=== PATIENT | female | born 1955 | race Caucasian/White ===

== ENCOUNTER 2017-10-15 16:13 | Emergency (ER) | payer OTHER ==
[2017-10-15 17:12] LABS: #Basophils 0.1 thou/uL (0.0-0.2); #Eosinphils 0.2 thou/uL (0.0-0.7); #Lymphocytes 2.8 thou/uL (1.20-3.40); #Monocytes 0.9 thou/uL (0.11-0.59); #Neutrophils 8.9 thou/uL (1.40-6.50); %Basophils 0.7 % (0.0-1.0); %Eosinophils 1.3 % (0.0-10.0); %Lymphocytes 21.8 % (21.0-51.0); %Monocytes 6.8 % (0.0-10.0); Hematocrit 34.7 % (36.0-47.0); Mean Platelet Volume 7.2 fL (7.4-10.4); Red Blood Cell (RBC) Count 4.01 mill/uL (4.20-5.40); White Blood Cell (WBC) Count 12.8 thou/uL (4.8-10.8)
[2017-10-15] MEDS ORDERED: Morphine 4 MG/ML Carpuject ONE (17:18)
[2017-10-15 17:19] LABS: PTT 28.6 SEC (22.9-36.1); Prothrombin Time 12.5 SEC (12.0-14.7)
--- NOTE | 2017-10-15 17:27 | ULT ---
RIGHT LOWER EXTREMITY VENOUS DUPLEX STUDY: 10/15/17 Deep veins of the right lower extremity evaluated with ultrasound and doppler. Color doppler with spe ctral analysis and compression study is performed on the common femoral, profunda femoral, superficia l femoral, popliteal, posterior tibial and greater saphenous veins. HISTORY: Pain and edema right lower extremity. Deep veins of the right lower extremity show normal compression and blood flow. No evidence of DVT. IMPRESSION: No evidence of right lower extremity DVT. POS: STEVE
[2017-10-15 17:28] LABS: ALT (SGPT) 19 U/L (8-55); AST (SGOT) 20 U/L (5-34); Alkaline Phosphatase 129 U/L (40-150); Anion Gap 15 mmol/L (10-20); BUN (Urea Nitrogen) 36 mg/dL (9.8-20.1); Bilirubin, Total 0.2 mg/dL (0.2-1.2); CK (CPK) 29 U/L (29-168); Calc. Creatinine Clearance 0 mL/min (70-130); Calcium 10.4 mg/dL (7.8-10.44); Carbon Dioxide 29 mmol/L (23-31); Chloride 102 mmol/L (98-107); Estimated GFR-MDRD 74; Globulin 3.5 g/dL (2.4-3.5); Protein, Total 7.5 g/dL (6.0-8.3)
[2017-10-15] MEDS ORDERED: Potassium Chloride 20 MEQ TAB ONE (17:32)
[2017-10-15] MEDS ORDERED: Ketorolac Tromethamine 30 MG/ML VIAL ONE (17:32)
== END 2017-10-15 18:03 | disposition home or self-care (01) ==
LOC: SCSER 16:13
DX: M79.661 Pain in right lower leg (principal); Z85.3 Personal history of malignant neoplasm of breast
CPT/HCPCS: 36415; 80053; 82550; 85025; 85610; 85730; 96372; J1885; J2270

== ENCOUNTER 2019-05-13 08:45 | Inpatient (IN) | payer OTHER ==
[2019-05-13 09:54] VITALS: BMI 35.0
[2019-05-25] MEDS ORDERED: Vancomycin HCl 1.5 GM in Sodium Chloride 0.9% 250 ML 300 ML IVPB SCH (06:00)
[2019-05-25] MEDS ORDERED: Sodium Chloride 0.9% 100 ML ONE (06:22)
[2019-05-25] MEDS ORDERED: Tranexamic Acid 1,000 MG/10 ML VIAL ONE (06:22)
[2019-05-25] MEDS ORDERED: Lidocaine 1% (PF) 30 ML VIAL ONE (06:33)
[2019-05-25] MEDS ORDERED: Midazolam HCl 2 mg/2 ml Vial ONE ×3 (06:33→09:23)
[2019-05-25] MEDS ORDERED: Fentanyl 100 MCG/2 ML VIAL ONE ×3 (06:33→09:40)
[2019-05-25] MEDS ORDERED: HYDROcodone/Acetaminophen 10/325 mg Tablet PO PRN ×2 (07:05)
[2019-05-25] MEDS ORDERED: diphenhydrAMINE 25 MG CAP PO PRN (07:05)
[2019-05-25] MEDS ORDERED: Zolpidem Tartrate 5 MG TAB PO PRN (07:05)
[2019-05-25] MEDS ORDERED: Ondansetron PF 4 MG/2 ML Vial IVP PRN (07:05)
[2019-05-25] MEDS ORDERED: traMADol HCl 50 MG TAB PO PRN ×2 (07:08→07:47)
[2019-05-25] MEDS ORDERED: Promethazine HCl 25 MG/ML VIAL IM PRN (07:40)
[2019-05-25] MEDS ORDERED: Fentanyl 100 MCG/2 ML VIAL IV PRN (07:42)
[2019-05-25] MEDS ORDERED: Ondansetron HCl/PF 4 MG/2 ML Vial IVP PRN (08:14)
[2019-05-25] MEDS ORDERED: CEVIMELINE HCL 30 MG PO SCH (09:00)
[2019-05-25] MEDS ORDERED: Baclofen 10 MG TAB PO SCH ×2 (09:00→15:00)
[2019-05-25] MEDS ORDERED: fentaNYL Citrate/PF 2,000 MCG in Sodium Chloride 0.9% 60 ML IV PRN (09:36)
--- NOTE | 2019-05-25 10:08 | RAD ---
RADIOGRAPH LEFT KNEE 2 VIEWS: 05/25/2019 HISTORY: 64-year-old female status post knee surgery for chronic pain and DJD COMPARISON: None FINDINGS: Resurfacing changes of articular surfaces of distal femur, patella, and tibial plateau. Metallic pros theses cover the resurfaced articular surfaces of distal femur and tibial plateau. Subcutaneous emphysema in the anterior soft tissues of the thigh and knee indicate recent status of surgery. IMPRESSION: Very recently status post total left knee replacement arthroplasty.
[2019-05-25] MEDS ORDERED: Ropivacaine 0.2% HCl/PF (40 MG/20 ML VIAL) ONE (10:11)
[2019-05-25] MEDS ORDERED: Ropivacaine 0.5% HCl/PF (150 MG/30 ML VIAL) ONE (10:11)
[2019-05-25] MEDS ORDERED: Midazolam HCl 2 mg/2 ml Vial IVP SCH (10:15)
[2019-05-25] MEDS ORDERED: Ondansetron PF 4 MG/2 ML Vial ONE (10:34)
[2019-05-25] MEDS ORDERED: ePHEDrine 50 MG/ML VIAL ONE (10:34)
[2019-05-25] MEDS ORDERED: Lidocaine 1% PF 5 ML VIAL ONE (10:34)
[2019-05-25] MEDS ORDERED: Ketorolac Tromethamine 30 MG/ML VIAL ONE (10:34)
[2019-05-25] MEDS ORDERED: PROPOFOL 200 MG/20 ML VIAL ONE (10:34)
--- NOTE | 2019-05-25 11:01 | OP ---
DATE OF PROCEDURE: 05/25/2019 PREOPERATIVE DIAGNOSIS: End-stage tricompartmental osteoarthritis, left knee. POSTOPERATIVE DIAGNOSIS: End-stage tricompartmental osteoarthritis, left knee. OPERATIVE PROCEDURES: Cemented cruciate sparing computer-assisted navigated left total knee arthroplasty. SURGEON: Antonio Greenwood MD MANAGER ENVIRONMENTAL SERVICES: Memo Case PA-C ANESTHESIA: General via LMA augmented with indwelling adductor canal block with a single shot sciatic block. COMPONENTS USED: [employer] triathlon size 3 cemented cruciate sparing femoral component with a size 3 primary cemented tibial base plate, 9 mm polyethylene fixed bearing insert and A29 patella button. TOURNIQUET TIME: 64 minutes at 300 mmHg. FINDINGS: End-stage severe degenerative tricompartmental disease, [id number] arthrosis, periarticular osteophyte formation, large serous effusion, and hypertrophic synovium changes consistent with degenerative genu varum. DRAINS: None. SPECIMENS: None. COMPLICATIONS: None. COUNTS: Correct. INDICATION FOR SURGERY: Missy is a 64-year-old white female, who has had progressive left knee pain and problems with standing or walking for the last 5 to 7 years. She has failed conservative management, elected to proceed with total knee arthroplasty as definitive treatment of her pain. PROCEDURE IN DETAIL: After informed consent was obtained in the preoperative holding area, the patient was taken to the operative suite where general anesthesia was induced. Once adequate level of general anesthesia was obtained, the patient was positioned and a well-padded tourniquet was placed around the left proximal thigh. The left lower extremity was then prepped and draped in the usual sterile fashion. Prior to exsanguination, a time-out was called and all members of the surgical team agreed upon site, surgeon, and patient. The extremity was then exsanguinated and the tourniquet was raised. A midline longitudinal incision was then made directly over the patella extending 2 fingerbreadths above the superior pole of the patella and 2 fingerbreadths inferior to the inferior patellar pole of the patella. Deeper subcutaneous layers were dissected sharply and local bleeding was controlled with Bovie electrocautery. A quad tendon longitudinal split was then made sharply and a median parapatellar arthrotomy was carried out both sharp and with Bovie electrocautery, carried down to 1 fingerbreadth medial to the tibial tubercle. The knee was then placed into flexion and the patella was everted nicely, and a copious fat pad ectomy was performed allowing for greater exposure of the tibia. The computer-assisted distal femoral fiducial was then placed and pinned firmly, and the distal femoral cutting guide was pinned firmly into place. The oscillating saw was then used to remove the appropriate amount of bone. The 4-in-1 cutting block was then placed on the distal femur and the oscillating saw was used to remove the appropriate amount of bone off the anterior, posterior, and chamfer cuts. After completion of bone cuts, the anterior cruciate ligament was resected sharply and the posterior cruciate ligament retractor was placed and the tibia was subluxed for better exposure. Partial meniscectomies were carried out, and the tibial computer-assisted fiducial was pinned, and the cutting guide was placed. Oscillating saw was then used to remove the bone, with Hohmann retractors used to take care and protect the collateral ligaments. After the tibial resection was performed, a laminar product coordinator was placed in between the freshened bone cuts. The knee placed at 90 degrees and further bilateral meniscectomies were carried out, and the curved osteotome and curettage were used to remove any excess bone spurs in the posterior compartment. The trial femoral component, tibial baseplate were placed with the appropriate polyethylene trial insert with an appropriate polyethylene spacer and patellar button. The knee was taken through full range of motion with flexion and extension from 0 to 90 degrees and patellar broach squarely in the trochlea without any squinting or subluxation noted. The knee was also stable to varus and valgus stressing at 0, 15, 45, and 90 degrees of flexion. The drawer was negative. All trial components were then removed and the keel punch was used to provide the appropriate defect in the tibia with a mallet. The freshened bone cuts were copiously irrigated with pulsatile lavage of about 1.5 L to remove all excess debris. The freshened bone cuts were then dried with suction and lap sponge. The knee was placed in flexion and retractors were placed to provide access to all bone cuts. Tobramycin-impregnated methyl methacrylate cement was then placed on the freshened bone cuts and implants which were malleted firmly into place. Curettage and [place] elevators were used to remove any excess bone cement. The knee was placed into full extension and the patellar button was placed under compression, and the cement was allowed to cure. Once completed, the components were again taken through full range of motion and copious irrigation of the knee was carried out with another liter of normal saline. All components were inspected fully with full range of motion and varus and valgus stressing. There was no laxity noted and full extension was observed clinically. Primary closure was accomplished with #2 interrupted Vicryl stitch of the arthrotomy defect. This was oversewn with a #2 running Quill barbed stitch. The subcutaneous layer was then closed with a running 0 barbed Monocryl stitch and skin closure accomplished with a running subcuticular 3-0 Monocryl barbed Quill stitch and augmented with cement on the skin. Tourniquet was lowered. Good spontaneous return of distal pulses was noted clinically and a sterile dressing was applied to the incision. The procedure was terminated without any complications. The patient was awakened in the operative suite and taken to the recovery room in stable condition. INPUT: 1000 mL crystalloid. OUTPUT: 200 mL clear yellow urine. ESTIMATED BLOOD LOSS: Less than 100. This was dictated by Memo Case PA-C, for Antonio Greenwood MD. Job ID: [id number]
[2019-05-25] MEDS: Aspirin 81 mg Enteric Coated Tablet PO SCH ×2 (12:41→22:00)
[2019-05-25] MEDS: Ferrous Gluconate 324 MG TAB PO SCH ×2 (12:42→22:00)
[2019-05-25] MEDS: Multivitamin W/ Minerals 1 TAB PO SCH (12:42)
[2019-05-25] MEDS: Furosemide 40 MG TAB PO SCH (12:42)
[2019-05-25] MEDS: Cyanocobalamin (Vitamin B-12) 1,000 MCG TAB PO SCH (12:42)
[2019-05-25] MEDS: Senokot S 8.6-50 MG TAB PO SCH ×2 (12:43→22:00)
[2019-05-25] MEDS: Zonisamide 100 MG CAP PO SCH ×2 (12:43→21:59)
[2019-05-25] MEDS: Sodium Chloride 0.9% 1,000 ML IV SCH ×2 (12:45→14:31)
[2019-05-25] MEDS: CEFAZOLIN 2 GM in Premix Bag 1 BAG IVPB SCH ×2 (14:26→22:01)
[2019-05-25] MEDS: Acetaminophen 500 MG TAB PO PRN (15:27)
--- NOTE | 2019-05-25 16:02 | PRG ---
DATE OF SERVICE: 05/25/2019 PRIMARY CARE PHYSICIAN: Dr. Danette Moralez. SUBJECTIVE: The patient is a 64-year-old female with fibromyalgia, hypertension , hyperlipidemia, mixed connective tissue disorder as well as breast cancer, underwent left total knee arthroplasty today. Hospitalist Team was consulted for medical management. The patient denies any chest pain, shortness of breath, palpitations, fever, chills, or focal neurologic deficit. The pain is controlled at this time. REVIEW OF SYSTEMS: As discussed above, no nausea, vomiting, diarrhea. She has a history of opioid induced constipation in the past. She is also on home oxygen. OBJECTIVE: VITAL SIGNS: Temperature 97, pulse of 57, respirations are 18, blood pressure 133/82, O2 saturation of 98% on 2 L nasal cannula. GENERAL: A 64-year-old female in no apparent distress. HEENT: Head, atraumatic and normocephalic. Sclerae anicteric. LUNGS: Clear to auscultation bilaterally with diminished air entry at bases. No accessory muscle use. No rhonchi or wheezing. HEART: S1 and S2 present. Regular rate and rhythm. 2/6 systolic murmur over the mitral area as well as aortic area. No heaves or pulsation. ABDOMEN: Soft and nontender. Bowel sounds are present. No rebound or guarding. No costovertebral angle tenderness. EXTREMITIES: No edema or calf tenderness. NEUROLOGIC: Grossly nonfocal. PSYCHIATRY: Alert, awake, and oriented x3. Normal affect. PERIPHERAL VASCULAR: Radial pulses palpable bilaterally. SKIN: Warm and dry. LABORATORY FINDINGS: WBC 8.9 with hemoglobin 11.7, hematocrit 35.3, and platelets are 321. PT/INR in normal range. Chemistry showed sodium 140, potassium 3.5, chloride 103, bicarb 25, BUN 36, creatinine 0.8, and glucose of 91. Urinalysis was negative for WBC bacteria. Knee x-ray by my review showed status post left knee replacement arthroplasty. EKG by my review showed normal sinus rhythm with left ventricular hypertrophy. IMPRESSION: 1. Chronic hypoxic respiratory failure, on home oxygen. 2. Mixed connective tissue disorder. 3. Fibromyalgia. 4. Thalassemia minor. 5. Hypertension. 6. Hyperlipidemia. 7. Triple negative breast cancer. 8. History of opioid-induced constipation. 9. History of serotonin syndrome in 2016 from Effexor and fentanyl. 10. Chronic pain syndrome. PLAN: We will continue current home medications. We will be careful with benzodiazepines along with current pain medications. Continue home oxygen. Continue irbesartan-hydrochlorothiazide for blood pressure. She is unable to tolerate statins. Current medications were reviewed. We will continue Senokot S. Repeat hemoglobin in a.m. Plan was discussed with the patient in detail. She stated understanding. Thank you Dr. Greenwood for this consultation. We will follow up with you. Job ID: [id number] SHAHIDA
[2019-05-25] MEDS: Ketorolac Tromethamine 30 MG/ML VIAL IVP PRN (18:03)
[2019-05-25] MEDS ORDERED: Non-Formulary Item 1 EACH (Tramadol Hcl [Tramadol Hcl Er] 300 MG) PO SCH (21:00)
[2019-05-25] MEDS: Diazepam 5 MG TAB PO SCH (21:59)
[2019-05-25] MEDS: carBAMazepine 100 mg Chewable Tablet PO SCH (22:00)
[2019-05-25] MEDS: Minocycline HCl 50 MG CAP PO SCH ×2 (22:00→22:07)
[2019-05-25] MEDS: Baclofen 10 MG TAB PO SCH (22:00)
[2019-05-25] MEDS: traMADol HCl 50 MG TAB PO SCH (22:01)
[2019-05-26] MEDS: Ketorolac Tromethamine 30 MG/ML VIAL IVP PRN ×4 (00:09→18:08)
[2019-05-26] MEDS: Ondansetron PF 4 MG/2 ML Vial IVP PRN ×4 (00:11→18:09)
[2019-05-26] MEDS: Zolpidem Tartrate 5 MG TAB PO PRN (00:12)
[2019-05-26] MEDS: Acetaminophen 325 MG TAB PO PRN ×2 (00:14→06:07)
[2019-05-26] MEDS: Sodium Chloride 0.9% 1,000 ML IV SCH ×3 (02:02→23:28)
[2019-05-26 06:03] LABS: Hemoglobin 9.1 g/dL (12.0-16.0); Mean Corpuscular HGB CONC 32.7 g/dL (32.0-36.0); Mean Corpuscular Hemoglobin 30.1 pg (27.0-31.0); Mean Corpuscular Volume 91.9 fL (78.0-98.0); Mean Platelet Volume 6.8 fL (7.4-10.4); Platelet Count 281 thou/uL (130-400); RBC Distribution Width 11.7 % (11.5-14.5); Red Blood Cell (RBC) Count 3.03 mill/uL (4.20-5.40); White Blood Cell (WBC) Count 8.9 thou/uL (4.8-10.8)
[2019-05-26] MEDS: Baclofen 10 MG TAB PO SCH ×3 (06:07→22:01)
--- NOTE | 2019-05-26 08:19 | PRG ---
DATE OF SERVICE: 05/26/2019 SUBJECTIVE: Missy is a 64-year-old white female, who is postop day 1 from a left total knee arthroplasty. She struggled last night with discomfort and pain, but currently is under better control. The patient ambulated approximately 2 steps yesterday, but had difficulty doing so due to her right knee instability. OBJECTIVE: VITAL SIGNS: Temperature 98.4, pulse 62, respiratory rate is 20 and unlabored; and blood pressure is 126/76. NEUROLOGIC: She is alert, oriented, responsive, and appropriate examiner. Her incision is clean. No strike through. She is neurovascularly intact. Dorsiflexion, inversion, and eversion, all being intact. LABORATORY DATA: Hemoglobin and hematocrit of 9.1 and 27.9. IMPRESSION: 1. A 64-year-old female postop day 1, left total knee arthroplasty. 2. Anemia. PLAN: Continue current care. Probable discharge on Friday this week. Job ID: [id number]
[2019-05-26] MEDS: Zonisamide 100 MG CAP PO SCH ×2 (10:10→22:03)
[2019-05-26] MEDS: Aspirin 81 mg Enteric Coated Tablet PO SCH ×2 (10:12→21:06)
[2019-05-26] MEDS: Multivitamin W/ Minerals 1 TAB PO SCH (10:12)
[2019-05-26] MEDS: Hydrochlorothiazide 25 MG TAB PO SCH (10:13)
[2019-05-26] MEDS: Furosemide 40 MG TAB PO SCH (10:14)
[2019-05-26] MEDS: Ferrous Gluconate 324 MG TAB PO SCH ×2 (10:14→21:07)
[2019-05-26] MEDS: Cyanocobalamin (Vitamin B-12) 1,000 MCG TAB PO SCH (10:15)
[2019-05-26] MEDS: Minocycline HCl 50 MG CAP PO SCH ×2 (10:17→21:06)
[2019-05-26] MEDS: Acetaminophen 500 MG TAB PO PRN ×2 (11:42→18:09)
[2019-05-26] MEDS: Ropivacaine HCl/PF 250 ML in Premix Bag 1 BAG NERVE BLCK SCH (12:00)
--- NOTE | 2019-05-26 17:21 | PDOC.PN ---
- Subjective Encounter Start Date: 05/26/19 Encounter Start Time: 08:15 Patient seen and examined for med mngt. No CP/SOB/Palpitations. Pain controlled. No fever/chills/SOB. No new complaints. No overnight events - Objective MAR Reviewed: Yes Vital Signs & Weight: Vital Signs (12 hours) Temp Pulse Resp BP Pulse Ox 05/26/19 16:16 99.1 F 80 16 103/63 100 05/26/19 12:02 98.5 F 72 16 146/77 H 100 05/26/19 08:00 100 05/26/19 07:36 98.4 F 62 20 126/76 99 Weight Admit Weight 198 lb Weight 198 lb I&O: 05/25/19 05/26/19 05/27/19 06:59 06:59 06:59 Intake Total 1700 Output Total 650 Balance 1050 Result Diagrams: 05/26/19 05:44 Phys Exam - Physical Examination Constitutional: NAD Respiratory: no wheezing, no rales, no rhonchi Cardiovascular: RRR, no rub Gastrointestinal: soft, non-tender, positive bowel sounds Neurological: moves all 4 limbs Dx/Plan - Plan DVT proph w/SCDs IMPRESSION: 1. Chronic hypoxic respiratory failure, on home oxygen. 2. Mixed connective tissue disorder. 3. Fibromyalgia. 4. Thalassemia minor. 5. Hypertension. 6. Hyperlipidemia. 7. Triple negative breast cancer. 8. History of opioid-induced constipation. 9. History of serotonin syndrome in 2016 from Effexor and fentanyl. 10. Chronic pain syndrome. PLAN: Continue home oxygen. Continue irbesartan-hydrochlorothiazide. Cont other home meds as below Will follow PRN Review of Systems - Review of Systems Respiratory: negative: Cough, Dry, Shortness of Breath, Hemoptysis, SOB with Excertion, Pleuritic Pain, Sputum, Wheezing Cardiovascular: negative: chest pain, palpitations, orthopnea, paroxysmal nocturnal dyspnea, edema, light headedness, other Gastrointestinal: negative: Nausea, Vomiting, Abdominal Pain, Diarrhea, Constipation, Melena, Hematochezia, Other - Medications/Allergies Allergies/Adverse Reactions: Allergies Allergy/AdvReac Type Severity Reaction Status Date / Time codeine Allergy Intermediate HALLUCINATI Verified 05/13/19 09:23 ONS promethazine [From Phenergan] Allergy Intermediate PERIODIC Verified 05/13/19 09 :23 LIMB MOVEMENT DISORDER morphine Allergy Verified 05/18/19 09:53 Medications: Current Medications Acetaminophen (Tylenol) 650 mg PO Q4H PRN PRN Reason: Headache/Fever or Pain Last Admin: 05/26/19 06:07 Dose: 650 mg Acetaminophen (Tylenol) 1,000 mg PO Q6H PRN PRN Reason: Headache/Fever or Pain Stop: 05/28/19 09:36 Last Admin: 05/26/19 11:42 Dose: 1,000 mg Hydrocodone Bitart/Acetaminophen ([place] 10/325) 1 tab PO Q4H PRN PRN Reason: Moderate Pain (4-6) Hydrocodone Bitart/Acetaminophen ([place] 10/325) 2 tab PO Q4H PRN PRN Reason: Severe Pain (7-10) Aspirin (Ecotrin) 81 mg PO BID [facility] Last Admin: 05/26/19 10:12 Dose: 81 mg Baclofen (Lioresal) 10 mg PO 0600,1400,2200 [facility] Last Admin: 05/26/19 16:37 Dose: 10 mg Carbamazepine (Tegretol) 100 mg PO [facility] Last Admin: 05/25/19 22:00 Dose: 100 mg Cholecalciferol (Vitamin D3) 10,000 units PO DAILY [facility] Last Admin: 05/26/19 10:15 Dose: Not Given Cyanocobalamin (Vitamin B-12) 1,000 mcg PO DAILY [facility] Last Admin: 05/26/19 10:15 Dose: 1,000 mcg Cyclobenzaprine HCl (Flexeril) 10 mg PO TID PRN PRN Reason: Muscle Pain Diazepam (Valium) 20 mg PO HS [facility] Last Admin: 05/25/19 21:59 Dose: 20 mg Diphenhydramine HCl (Benadryl) 25 mg PO Q6H PRN PRN Reason: Itching Ferrous Gluconate (Fergon) 324 mg PO BID [facility] Last Admin: 05/26/19 10:14 Dose: 324 mg Furosemide (Lasix) 40 mg PO QAM [facility] Last Admin: 05/26/19 10:14 Dose: Not Given Hydrochlorothiazide (Hydrochlorothiazide) 12.5 mg PO QAM [facility] Last Admin: 05/26/19 10:13 Dose: 12.5 mg Sodium Chloride (Normal Saline 0.9%) 1,000 mls @ 100 mls/hr IV .Q10H [facility] Last Admin: 05/26/19 11:56 Dose: 1,000 mls Ropivacaine 250 ml/ Device 250 mls @ 10 mls/hr NERVE BLCK INF [facility] Last Admin: 05/26/19 12:00 Dose: 250 mls Fentanyl Citrate 2,000 mcg/ (Sodium Chloride) 100 mls @ 0 mls/hr IV INF PRN PRN Reason: Pain Last Admin: 05/26/19 13:47 Dose: 100 mls Irbesartan (Avapro) 300 mg PO QAM [facility] Last Admin: 05/26/19 13:03 Dose: 300 mg Iron/Minerals/Multivitamins (Theragran M) 1 tab PO DAILY [facility] Last Admin: 05/26/19 10:12 Dose: 1 tab Ketorolac Tromethamine (Toradol) 30 mg IVP Q6H PRN PRN Reason: Pain Stop: 05/27/19 09:36 Last Admin: 05/26/19 11:41 Dose: 30 mg Minocycline HCl (Minocycline Hcl) 100 mg PO BID [facility] Last Admin: 05/26/19 10:17 Dose: Not Given Non-Formulary Medication (Cevimeline Hcl [Evoxac]) 30 mg PO DAILY [facility] Ondansetron HCl (Zofran) 4 mg IVP Q6H PRN PRN Reason: Nausea/Vomiting Last Admin: 05/26/19 11:41 Dose: 4 mg Promethazine HCl (Phenergan) 12.5 mg IM Q4H PRN PRN Reason: Nausea Sodium Chloride (Flush - Normal Saline) 10 ml IVF PRN PRN PRN Reason: Saline Flush Tramadol HCl (Ultram) 300 mg PO HS [facility] Last Admin: 05/25/19 22:01 Dose: Not Given Tramadol HCl (Ultram) 50 mg PO Q6H PRN PRN Reason: Pain Zolpidem Tartrate (Ambien) 5 mg PO HSPRN PRN PRN Reason: Insomnia Last Admin: 05/26/19 00:12 Dose: 5 mg Zonisamide (Zonisamide) 200 mg PO BID [facility] Last Admin: 05/26/19 10:10 Dose: 200 mg
[2019-05-26] MEDS: carBAMazepine 100 mg Chewable Tablet PO SCH (21:07)
[2019-05-26] MEDS: traMADol HCl 50 MG TAB PO SCH (22:01)
[2019-05-26] MEDS: Diazepam 5 MG TAB PO SCH (22:02)
[2019-05-26] MEDS ORDERED: HYDROcodone/Acetaminophen 10/325 mg Tablet PO PRN ×2 (22:30)
[2019-05-27] MEDS: Ondansetron PF 4 MG/2 ML Vial IVP PRN ×3 (00:17→12:00)
[2019-05-27] MEDS: Acetaminophen 500 MG TAB PO PRN ×4 (00:17→18:39)
[2019-05-27] MEDS: Ketorolac Tromethamine 30 MG/ML VIAL IVP PRN ×3 (00:17→12:36)
[2019-05-27] MEDS: Zolpidem Tartrate 5 MG TAB PO PRN (00:18)
[2019-05-27] MEDS: Baclofen 10 MG TAB PO SCH ×3 (06:10→21:39)
[2019-05-27 06:25] LABS: Hemoglobin 8.8 g/dL (12.0-16.0); Mean Corpuscular HGB CONC 32.2 g/dL (32.0-36.0); Mean Corpuscular Hemoglobin 29.7 pg (27.0-31.0); Mean Corpuscular Volume 92.3 fL (78.0-98.0); Mean Platelet Volume 6.9 fL (7.4-10.4); Platelet Count 299 thou/uL (130-400); RBC Distribution Width 12.1 % (11.5-14.5); Red Blood Cell (RBC) Count 2.97 mill/uL (4.20-5.40); White Blood Cell (WBC) Count 14.2 thou/uL (4.8-10.8)
[2019-05-27] MEDS: Aspirin 81 mg Enteric Coated Tablet PO SCH ×2 (08:32→21:39)
[2019-05-27] MEDS: Hydrochlorothiazide 25 MG TAB PO SCH (08:32)
[2019-05-27] MEDS: Furosemide 40 MG TAB PO SCH (08:33)
[2019-05-27] MEDS: Cyanocobalamin (Vitamin B-12) 1,000 MCG TAB PO SCH (08:34)
[2019-05-27] MEDS: Multivitamin W/ Minerals 1 TAB PO SCH (08:34)
[2019-05-27] MEDS: Ferrous Gluconate 324 MG TAB PO SCH ×2 (08:34→21:39)
[2019-05-27] MEDS: Minocycline HCl 50 MG CAP PO SCH ×2 (08:37→21:41)
[2019-05-27] MEDS: Zonisamide 100 MG CAP PO SCH ×2 (08:38→21:41)
[2019-05-27] MEDS: Sodium Chloride 0.9% 1,000 ML IV SCH ×2 (09:18→14:41)
--- NOTE | 2019-05-27 09:26 | PRG ---
DATE OF SERVICE: 05/27/2019 SUBJECTIVE: Missy is a 64-year-old white female, postop day 2 from a left total knee arthroplasty. She has been slow to progress, ambulated anywhere from 12 to 20 feet yesterday evening and her pain is slowly but surely getting under better control. OBJECTIVE: VITAL SIGNS: Temperature 98.2, pulse 77, respiratory rate 16, and blood pressure is 154/84. NEUROLOGIC: She is alert, oriented, appropriate, responsive with examiner. Grossly nonfocal. Her incision is clean. No strike through. She is neurovascularly intact in both lower extremities. LABORATORY DATA: Hemoglobin and hematocrit are 8.8 and 27.4. IMPRESSION: 1. A 64-year-old female on postop day #2, left total knee arthroplasty. 2. Anemia. PLAN: 1. I believe we will consult Case Management for placement either inpatient rehab or fdc depending on availability. 2. Continue to follow and probable transfer discharge on Friday. Job ID: [id number]
[2019-05-27] MEDS: traMADol HCl 50 MG TAB PO PRN (10:38)
[2019-05-27] MEDS: Cyclobenzaprine 10 MG TAB PO PRN (10:42)
[2019-05-27] MEDS: Ropivacaine HCl/PF 250 ML in Premix Bag 1 BAG NERVE BLCK SCH (11:34)
[2019-05-27] MEDS: Ondansetron ODT 4 MG TAB PO PRN (18:40)
[2019-05-27] MEDS: Ketorolac Tromethamine 30 MG/ML VIAL IM/IV PRN (18:41)
[2019-05-27] MEDS: carBAMazepine 100 mg Chewable Tablet PO SCH (21:39)
[2019-05-27] MEDS: Diazepam 5 MG TAB PO SCH (21:39)
[2019-05-27] MEDS: traMADol HCl 50 MG TAB PO SCH (21:39)
[2019-05-28] MEDS: Acetaminophen 500 MG TAB PO PRN ×2 (00:29→06:14)
[2019-05-28] MEDS: Ondansetron ODT 4 MG TAB PO PRN ×4 (00:29→18:03)
[2019-05-28] MEDS: Ketorolac Tromethamine 30 MG/ML VIAL IM/IV PRN ×4 (00:29→18:03)
[2019-05-28] MEDS: Zolpidem Tartrate 5 MG TAB PO PRN (00:29)
[2019-05-28] MEDS: Sodium Chloride 0.9% 1,000 ML IV SCH ×3 (04:32→20:23)
[2019-05-28] MEDS: Baclofen 10 MG TAB PO SCH ×3 (06:14→19:58)
[2019-05-28] MEDS: Minocycline HCl 50 MG CAP PO SCH ×2 (08:37→19:59)
[2019-05-28] MEDS: Hydrochlorothiazide 25 MG TAB PO SCH (08:40)
[2019-05-28] MEDS: Zonisamide 100 MG CAP PO SCH ×2 (08:40→19:57)
[2019-05-28] MEDS: Cyanocobalamin (Vitamin B-12) 1,000 MCG TAB PO SCH (08:40)
[2019-05-28] MEDS: Multivitamin W/ Minerals 1 TAB PO SCH (08:40)
[2019-05-28] MEDS: Furosemide 40 MG TAB PO SCH (08:40)
[2019-05-28] MEDS: Aspirin 81 mg Enteric Coated Tablet PO SCH ×2 (08:40→19:57)
[2019-05-28] MEDS: Ferrous Gluconate 324 MG TAB PO SCH ×2 (08:40→19:57)
[2019-05-28] MEDS: traMADol HCl 50 MG TAB PO PRN (08:41)
[2019-05-28] MEDS: Acetaminophen 325 MG TAB PO PRN ×2 (12:09→18:03)
[2019-05-28] MEDS ORDERED: Milk Of Magnesia 30 ML UDCUP PO PRN (14:47)
--- NOTE | 2019-05-28 14:50 | PDOC.PN ---
- Subjective Encounter Start Date: 05/28/19 Encounter Start Time: 14:48 Patient seen and examined for med mngt. Pain controlled. No BM since friday - refusing stool softeners. No new complaints. No overnight events - Objective MAR Reviewed: Yes Vital Signs & Weight: Vital Signs (12 hours) Temp Pulse Resp BP Pulse Ox 05/28/19 11:23 97.9 F 62 16 124/72 98 05/28/19 07:25 98 F 74 16 111/53 L 100 Weight Admit Weight 198 lb Weight 198 lb I&O: 05/27/19 05/28/19 05/29/19 06:59 06:59 06:59 Intake Total 1160 960 Output Total 1250 1950 Balance -90 -990 Result Diagrams: 05/27/19 06:00 Phys Exam - Physical Examination Constitutional: NAD Respiratory: no wheezing, no rhonchi Cardiovascular: RRR, no rub Gastrointestinal: soft, non-tender, positive bowel sounds Musculoskeletal: no edema Neurological: moves all 4 limbs Psychiatric: A&O x 3 Dx/Plan - Plan DVT proph w/SCDs IMPRESSION: 1. Chronic hypoxic respiratory failure, on home oxygen. 2. Mixed connective tissue disorder. 3. Fibromyalgia. 4. Thalassemia minor. 5. Hypertension. 6. Hyperlipidemia. 7. Triple negative breast cancer. 8. History of opioid-induced constipation. 9. History of serotonin syndrome in 2016 from Effexor and fentanyl. 10. Chronic pain syndrome. PLAN: Add Miralax DC Toney when ok with Ortho check BMP Continue O2 supp with continuous monitoring Continue irbesartan-hydrochlorothiazide. Cont other home meds as below Will follow PRN Review of Systems - Review of Systems Respiratory: negative: Cough, Dry, Shortness of Breath, Hemoptysis, SOB with Excertion, Pleuritic Pain, Sputum, Wheezing Cardiovascular: negative: chest pain, palpitations, orthopnea, paroxysmal nocturnal dyspnea, edema, light headedness, other Gastrointestinal: Constipation. negative: Nausea, Vomiting, Abdominal Pain, Diarrhea, Melena, Hematochezia, Other - Medications/Allergies Allergies/Adverse Reactions: Allergies Allergy/AdvReac Type Severity Reaction Status Date / Time codeine Allergy Intermediate HALLUCINATI Verified 05/13/19 09:23 ONS promethazine [From Phenergan] Allergy Intermediate PERIODIC Verified 05/13/19 09 :23 LIMB MOVEMENT DISORDER morphine Allergy Verified 05/18/19 09:53 hydrocodone Allergy Uncoded 05/27/19 11:59 Medications: Current Medications Acetaminophen (Tylenol) 650 mg PO Q4H PRN PRN Reason: Headache/Fever or Pain Last Admin: 05/28/19 12:09 Dose: 650 mg Hydrocodone Bitart/Acetaminophen ([place] 10/325) 1 tab PO Q4H PRN PRN Reason: Moderate Pain (4-6) Hydrocodone Bitart/Acetaminophen ([place] 10/325) 2 tab PO Q4H PRN PRN Reason: Severe Pain (7-10) Aspirin (Ecotrin) 81 mg PO BID [facility] Last Admin: 05/28/19 08:40 Dose: 81 mg Baclofen (Lioresal) 10 mg PO 0600,1400,2200 [facility] Last Admin: 05/28/19 13:18 Dose: 10 mg Carbamazepine (Tegretol) 100 mg PO HS [facility] Last Admin: 05/27/19 21:39 Dose: 100 mg Cholecalciferol (Vitamin D3) 10,000 units PO DAILY [facility] Last Admin: 05/28/19 08:39 Dose: 10,000 units Cyanocobalamin (Vitamin B-12) 1,000 mcg PO DAILY [facility] Last Admin: 05/28/19 08:40 Dose: 1,000 mcg Cyclobenzaprine HCl (Flexeril) 10 mg PO TID PRN PRN Reason: Muscle Pain Last Admin: 05/27/19 10:42 Dose: 10 mg Diazepam (Valium) 20 mg PO HS [facility] Last Admin: 05/27/19 21:39 Dose: 20 mg Diphenhydramine HCl (Benadryl) 25 mg PO Q6H PRN PRN Reason: Itching Ferrous Gluconate (Fergon) 324 mg PO BID [facility] Last Admin: 05/28/19 08:40 Dose: 324 mg Furosemide (Lasix) 40 mg PO QAM [facility] Last Admin: 05/28/19 08:40 Dose: 40 mg Hydrochlorothiazide (Hydrochlorothiazide) 12.5 mg PO QAM [facility] Last Admin: 05/28/19 08:40 Dose: 12.5 mg Sodium Chloride (Normal Saline 0.9%) 1,000 mls @ 100 mls/hr IV .Q10H [facility] Last Admin: 05/28/19 13:28 Dose: Not Given Ropivacaine 250 ml/ Device 250 mls @ 10 mls/hr NERVE BLCK INF [facility] Last Admin: 05/27/19 11:34 Dose: 250 mls Irbesartan (Avapro) 300 mg PO QAM [facility] Last Admin: 05/28/19 09:05 Dose: Not Given Iron/Minerals/Multivitamins (Theragran M) 1 tab PO DAILY [facility] Last Admin: 05/28/19 08:40 Dose: 1 tab Ketorolac Tromethamine (Toradol) 30 mg IM/IV Q6H PRN PRN Reason: Pain Stop: 06/01/19 18:05 Last Admin: 05/28/19 12:03 Dose: 30 mg Magnesium Hydroxide (Milk Of Magnesium) 30 ml PO DAILYPRN PRN PRN Reason: Constipation Minocycline HCl (Minocycline Hcl) 100 mg PO BID [facility] Last Admin: 05/28/19 08:37 Dose: Not Given Non-Formulary Medication (Cevimeline Hcl [Evoxac]) 30 mg PO DAILY [facility] Ondansetron HCl (Zofran) 4 mg IVP Q6H PRN PRN Reason: Nausea/Vomiting Last Admin: 05/27/19 12:00 Dose: 4 mg Ondansetron HCl (Zofran Odt) 4 mg PO Q6H PRN PRN Reason: Nausea/Vomiting Last Admin: 05/28/19 12:09 Dose: 4 mg Polyethylene Glycol (Miralax) 17 gm PO DAILY PRN PRN Reason: Constipation Promethazine HCl (Phenergan) 12.5 mg IM Q4H PRN PRN Reason: Nausea Sodium Chloride (Flush - Normal Saline) 10 ml IVF PRN PRN PRN Reason: Saline Flush Last Admin: 05/27/19 12:00 Dose: 10 ml Tramadol HCl (Ultram) 300 mg PO HS [facility] Last Admin: 05/27/19 21:39 Dose: 300 mg Tramadol HCl (Ultram) 50 mg PO Q6H PRN PRN Reason: Pain Last Admin: 05/28/19 08:41 Dose: 50 mg Zolpidem Tartrate (Ambien) 5 mg PO HSPRN PRN PRN Reason: Insomnia Last Admin: 05/28/19 00:29 Dose: 5 mg Zonisamide (Zonisamide) 200 mg PO BID [facility] Last Admin: 05/28/19 08:40 Dose: 200 mg
[2019-05-28 15:45] LABS: Anion Gap 14 mmol/L (10-20); BUN (Urea Nitrogen) 21 mg/dL (9.8-20.1); Calc. Creatinine Clearance 109 mL/min (70-130); Calcium 9.3 mg/dL (7.8-10.44); Carbon Dioxide 26 mmol/L (23-31); Chloride 105 mmol/L (98-107); Estimated GFR-MDRD 79; Glucose 115 mg/dL (80-115); Magnesium 2.1 mg/dL (1.6-2.6); Potassium 4.7 mmol/L (3.5-5.1); Sodium 140 mmol/L (136-145)
[2019-05-28] MEDS: traMADol HCl 50 MG TAB PO SCH (19:57)
[2019-05-28] MEDS: carBAMazepine 100 mg Chewable Tablet PO SCH (19:57)
[2019-05-28] MEDS: Diazepam 5 MG TAB PO SCH (19:58)
[2019-05-29] MEDS: Ketorolac Tromethamine 30 MG/ML VIAL IM/IV PRN ×4 (00:14→18:36)
[2019-05-29] MEDS: Zolpidem Tartrate 5 MG TAB PO PRN (00:15)
[2019-05-29] MEDS: Acetaminophen 325 MG TAB PO PRN ×4 (00:15→18:36)
[2019-05-29] MEDS: Ondansetron ODT 4 MG TAB PO PRN ×4 (00:15→18:36)
[2019-05-29] MEDS: Cyclobenzaprine 10 MG TAB PO PRN (04:04)
[2019-05-29] MEDS: traMADol HCl 50 MG TAB PO PRN ×2 (04:04→10:11)
[2019-05-29] MEDS: Baclofen 10 MG TAB PO SCH ×3 (05:42→21:11)
[2019-05-29] MEDS: Cyanocobalamin (Vitamin B-12) 1,000 MCG TAB PO SCH (10:09)
[2019-05-29] MEDS: Aspirin 81 mg Enteric Coated Tablet PO SCH ×2 (10:10→21:11)
[2019-05-29] MEDS: Furosemide 40 MG TAB PO SCH (10:10)
[2019-05-29] MEDS: Multivitamin W/ Minerals 1 TAB PO SCH (10:10)
[2019-05-29] MEDS: Hydrochlorothiazide 25 MG TAB PO SCH (10:10)
[2019-05-29] MEDS: Ferrous Gluconate 324 MG TAB PO SCH ×2 (10:10→21:11)
[2019-05-29] MEDS: Minocycline HCl 50 MG CAP PO SCH ×2 (10:11→20:38)
[2019-05-29] MEDS: Sodium Chloride 0.9% 1,000 ML IV SCH ×2 (11:39→20:42)
[2019-05-29] MEDS: Zonisamide 100 MG CAP PO SCH ×2 (12:07→21:11)
--- NOTE | 2019-05-29 15:17 | PRG ---
DATE OF SERVICE: 05/29/2019 SUBJECTIVE: Missy is a 64-year-old white female, postop day 4 left total knee arthroplasty. She has been slowly making progress. Her transfer to inpatient rehabilitation was denied per insurance. OBJECTIVE: VITAL SIGNS: Temperature 98.1, pulse 95, respiratory rate 20 and nonlabored, O2 saturation 99% on 2 L nasal cannula, and blood pressure is 108/66. GENERAL: She is alert, oriented to person, place, time and situation, grossly nonfocal and is responsive and appropriate with examiner. SKIN: Her incision is clean. There is no strike through. NEUROLOGIC: She is neurovascularly intact in the involved extremity. IMPRESSION: This is a 64-year-old white female, postop day 4, left total knee arthroplasty. PLAN: Continue current management and physical therapy encouragement. We will see how she is doing on Friday and consider home discharge. Job ID: [id number]
--- NOTE | 2019-05-29 15:53 | PDOC.PN ---
- Subjective Encounter Start Date: 05/29/19 Encounter Start Time: 15:51 Doing ok. Says she is not moving forward with recovery as fast as she hoped because her non-surgical knee is so bad. Otherwise ok. Had the Toney out. Confident her bowels will be moving successfully now. - Objective Vital Signs & Weight: Vital Signs (12 hours) Temp Pulse Resp BP BP Pulse Ox 05/29/19 15:25 98.2 F 84 20 94/59 L 100 05/29/19 11:46 98 F 59 L 20 104/69 99 05/29/19 08:23 97.9 F 66 16 108/66 100 05/29/19 04:10 98.1 F 95 20 120/71 99 Weight Admit Weight 198 lb Weight 198 lb I&O: 05/28/19 05/29/19 05/30/19 06:59 06:59 06:59 Intake Total 960 1600 Output Total 1950 2000 Balance -990 -400 Result Diagrams: 05/27/19 06:00 05/28/19 15:18 Phys Exam - Physical Examination Respiratory: no wheezing, no rales, no rhonchi Cardiovascular: RRR II/ M LLSB Gastrointestinal: soft, non-tender, no distention, positive bowel sounds Musculoskeletal: no edema Dx/Plan (1) Chronic respiratory failure with hypoxia Code(s): J96.11 - CHRONIC RESPIRATORY FAILURE WITH HYPOXIA Status: Acute (2) Fibromyalgia Status: Acute (3) Mixed connective tissue disease Code(s): M35.1 - OTHER OVERLAP SYNDROMES Status: Acute (4) Thalassemia minor Code(s): D56.3 - THALASSEMIA MINOR Status: Acute (5) HTN (hypertension) Code(s): I10 - ESSENTIAL (PRIMARY) HYPERTENSION Status: Acute (6) HLD (hyperlipidemia) Code(s): E78.5 - HYPERLIPIDEMIA, UNSPECIFIED Status: Acute - Plan * Medically stable and doing well. * CM working toward rehab placement through [facility]. * No change in plans.
[2019-05-29] MEDS: carBAMazepine 100 mg Chewable Tablet PO SCH (21:11)
[2019-05-29] MEDS: traMADol HCl 50 MG TAB PO SCH (21:11)
[2019-05-29] MEDS: Diazepam 5 MG TAB PO SCH (21:12)
[2019-05-30] MEDS: Ondansetron ODT 4 MG TAB PO PRN ×4 (00:40→18:23)
[2019-05-30] MEDS: Acetaminophen 325 MG TAB PO PRN ×4 (00:40→18:23)
[2019-05-30] MEDS: Zolpidem Tartrate 5 MG TAB PO PRN (00:41)
[2019-05-30] MEDS: Ketorolac Tromethamine 30 MG/ML VIAL IM/IV PRN ×4 (00:41→18:23)
[2019-05-30] MEDS: Baclofen 10 MG TAB PO SCH ×3 (06:34→22:00)
[2019-05-30] MEDS: Sodium Chloride 0.9% 1,000 ML IV SCH ×3 (06:36→22:20)
[2019-05-30] MEDS: Polyethylene Glycol 3350 17 GM Packet PO PRN (09:17)
[2019-05-30] MEDS: Aspirin 81 mg Enteric Coated Tablet PO SCH ×2 (09:18→21:56)
[2019-05-30] MEDS: Hydrochlorothiazide 25 MG TAB PO SCH (09:18)
[2019-05-30] MEDS: Ferrous Gluconate 324 MG TAB PO SCH ×2 (09:21→21:59)
[2019-05-30] MEDS: Cyanocobalamin (Vitamin B-12) 1,000 MCG TAB PO SCH (09:22)
[2019-05-30] MEDS: Furosemide 40 MG TAB PO SCH (09:22)
[2019-05-30] MEDS: Multivitamin W/ Minerals 1 TAB PO SCH (09:23)
[2019-05-30] MEDS: Minocycline HCl 50 MG CAP PO SCH ×2 (09:24→22:00)
[2019-05-30] MEDS: Zonisamide 100 MG CAP PO SCH ×2 (10:15→22:01)
[2019-05-30] MEDS: traMADol HCl 50 MG TAB PO PRN (12:03)
[2019-05-30] MEDS: Diazepam 5 MG TAB PO SCH (21:56)
[2019-05-30] MEDS: traMADol HCl 50 MG TAB PO SCH (21:57)
[2019-05-30] MEDS: carBAMazepine 100 mg Chewable Tablet PO SCH (21:59)
[2019-05-31] MEDS: Zolpidem Tartrate 5 MG TAB PO PRN (01:46)
[2019-05-31] MEDS: Ondansetron ODT 4 MG TAB PO PRN ×4 (01:46→18:24)
[2019-05-31] MEDS: Acetaminophen 325 MG TAB PO PRN ×4 (01:46→18:23)
[2019-05-31] MEDS: Ketorolac Tromethamine 30 MG/ML VIAL IM/IV PRN ×4 (01:47→18:24)
[2019-05-31] MEDS: Baclofen 10 MG TAB PO SCH ×3 (06:37→21:30)
[2019-05-31] MEDS: Furosemide 40 MG TAB PO SCH (08:40)
[2019-05-31] MEDS: Polyethylene Glycol 3350 17 GM Packet PO PRN (08:40)
[2019-05-31] MEDS: Cyanocobalamin (Vitamin B-12) 1,000 MCG TAB PO SCH (08:40)
[2019-05-31] MEDS: Multivitamin W/ Minerals 1 TAB PO SCH (08:40)
[2019-05-31] MEDS: Zonisamide 100 MG CAP PO SCH ×2 (08:40→21:29)
[2019-05-31] MEDS: Ferrous Gluconate 324 MG TAB PO SCH ×2 (08:40→21:30)
[2019-05-31] MEDS: Aspirin 81 mg Enteric Coated Tablet PO SCH ×2 (08:40→21:30)
[2019-05-31] MEDS: Minocycline HCl 50 MG CAP PO SCH ×2 (08:44→21:31)
[2019-05-31] MEDS: Hydrochlorothiazide 25 MG TAB PO SCH (08:44)
[2019-05-31] MEDS: Sodium Chloride 0.9% 1,000 ML IV SCH ×2 (12:59→23:33)
--- NOTE | 2019-05-31 14:04 | PRG ---
DATE OF SERVICE: 05/31/2019 SUBJECTIVE: The patient was seen and examined at bedside. She is doing quite well. She does not have much complaints to offer. OBJECTIVE: VITAL SIGNS: Blood pressure is 131/80, pulse is 79, temperature is 98.0, respirations 16, and O2 saturation is 99% on room air. HEENT: Head is atraumatic and normocephalic. Eyes are PERRLA. Sclerae are nonicteric. Oral mucosa is moist. NECK: Supple. LUNGS: Clear. HEART: S1, S2 normal. No S3. No S4. ABDOMEN: Soft, nontender. EXTREMITIES: Small dressing over the left knee in the front. Mild swelling around the area. NEUROLOGIC: She is alert and oriented x4. There are no any motor or sensory deficits. LABORATORY DATA: None today. IMPRESSION: 1. Chronic respiratory failure with hypoxia, resolved. 2. Mixed connective tissue disease. 3. Thalassemia minor. 4. Hypertension. 5. Hyperlipidemia. 6. Status post left total knee arthroplasty on the 25 of May. PLAN: She is going to continue her current regimen with pain management and PT per Dr. Greenwood. She will continue furosemide 40 mg once a day and diazepam along with ARB. Job ID: [id number]
[2019-05-31] MEDS: traMADol HCl 50 MG TAB PO PRN (19:16)
[2019-05-31] MEDS: Diazepam 5 MG TAB PO SCH (21:29)
[2019-05-31] MEDS: carBAMazepine 100 mg Chewable Tablet PO SCH (21:30)
[2019-05-31] MEDS: traMADol HCl 50 MG TAB PO SCH (23:02)
[2019-06-01] MEDS: Acetaminophen 325 MG TAB PO PRN ×2 (00:14→06:39)
[2019-06-01] MEDS: Ondansetron ODT 4 MG TAB PO PRN ×2 (00:15→06:40)
[2019-06-01] MEDS: Zolpidem Tartrate 5 MG TAB PO PRN ×2 (00:15→23:11)
[2019-06-01] MEDS: Ketorolac Tromethamine 30 MG/ML VIAL IM/IV PRN ×2 (00:15→06:39)
[2019-06-01] MEDS: Cyclobenzaprine 10 MG TAB PO PRN ×2 (02:39→09:01)
[2019-06-01] MEDS: Baclofen 10 MG TAB PO SCH ×3 (06:39→21:36)
[2019-06-01] MEDS: traMADol HCl 50 MG TAB PO PRN (09:01)
[2019-06-01] MEDS: Aspirin 81 mg Enteric Coated Tablet PO SCH ×2 (09:04→21:07)
[2019-06-01] MEDS: Cyanocobalamin (Vitamin B-12) 1,000 MCG TAB PO SCH (09:04)
[2019-06-01] MEDS: Furosemide 40 MG TAB PO SCH (09:05)
[2019-06-01] MEDS: Hydrochlorothiazide 25 MG TAB PO SCH ×2 (09:05→09:08)
[2019-06-01] MEDS: Ferrous Gluconate 324 MG TAB PO SCH ×2 (09:05→21:06)
[2019-06-01] MEDS: Minocycline HCl 50 MG CAP PO SCH ×2 (09:11→21:25)
[2019-06-01] MEDS: Multivitamin W/ Minerals 1 TAB PO SCH (09:40)
[2019-06-01] MEDS: Zonisamide 100 MG CAP PO SCH ×2 (09:40→21:40)
[2019-06-01] MEDS ORDERED: Fentanyl 100 MCG/2 ML VIAL SLOW IVP PRN (11:13)
[2019-06-01] MEDS ORDERED: HYDROcodone/Acetaminophen 10/325 mg Tablet PO PRN (11:58)
--- NOTE | 2019-06-01 12:25 | PRG ---
DATE OF SERVICE: 06/01/2019 SUBJECTIVE: Missy is now postop day #7 from a left total knee arthroplasty. She still complains of pain, discomfort, and there has been some confusion about allergies to include hydrocodone. The patient states that she has never had an allergic reaction of this. Otherwise, this afternoon she is showering and conversive. OBJECTIVE: VITAL SIGNS: Temperature 98.1, pulse 61, respiratory rate 16, O2 saturation 100% on room air, blood pressure 111/68. GENERAL: She is alert and oriented to person, place, time, and situation. Responsive and appropriate with examiner. IMPRESSION: 1. A 64-year-old white female, postop day #7 left total knee arthroplasty. 2. Right knee failed total knee arthroplasty. PLAN: 1. Continue current care. 2. I will place a hinged brace on the right lower extremity for stability. 3. Discuss with the pharmacist initiation of hydrocodone oral for pain control. 4. Need to discuss discharge options with the patient. Job ID: [id number]
[2019-06-01] MEDS: HYDROcodone/Acetaminophen 10/325 mg Tablet PO PRN ×3 (12:29→21:30)
--- NOTE | 2019-06-01 15:25 | PRG ---
DATE OF SERVICE: 06/01/2019 SUBJECTIVE: The patient is seen and examined at the bedside. She has a lot of pain in her left knee. The knee, which was operated. Apparently, she did physical therapy and she thinks she over did it. She rates the pain at 9.5 to 10. OBJECTIVE: VITAL SIGNS: Blood pressure is 139/75, pulse is 73, temperature 97.9, respirations 16, and O2 saturation 100% on room air. HEENT: Head is atraumatic and normocephalic. Eyes are PERRLA. Sclerae are nonicteric. Oral mucosa is moist. NECK: Supple. LUNGS: Clear. HEART: S1 and S2 normal. ABDOMEN: Soft and nontender. Bowel sounds are present. No organomegaly. EXTREMITIES: Left knee with small swelling around the area, 1+. Not tender to palpation. LABORATORY DATA: None today. IMPRESSION: 1. Status post left knee arthroplasty. 2. Chronic respiratory failure with hypoxia, resolved. 3. Mixed connective tissue disease, to use oxygen at night. Apparently, she has some shallow breathing at night when she sleeps and gets hypoxic. 4. Thalassemia minor. 5. Hypertension. 6. Hyperlipidemia. PLAN: Start her on fentanyl 25 mcg q.4 to 6 hours p.r.n. as needed and Dr. Greenwood will make decision regarding x-rays of her left knee versus CT if needed. We will continue current regimen and apparently, she is allergic to codeine and hydrocodone, so we opted out not to use those. Job ID: [id number]
[2019-06-01] MEDS: Sodium Chloride 0.9% 1,000 ML IV SCH ×2 (17:36→23:54)
[2019-06-01] MEDS: carBAMazepine 100 mg Chewable Tablet PO SCH (21:07)
[2019-06-01] MEDS: Diazepam 5 MG TAB PO SCH ×2 (21:08→22:34)
[2019-06-01] MEDS: traMADol HCl 50 MG TAB PO SCH (22:32)
[2019-06-02] MEDS: HYDROcodone/Acetaminophen 10/325 mg Tablet PO PRN ×5 (01:38→17:04)
[2019-06-02] MEDS: traMADol HCl 50 MG TAB PO PRN (04:29)
[2019-06-02] MEDS: Sodium Chloride 0.9% 1,000 ML IV SCH ×2 (05:19→13:50)
[2019-06-02] MEDS: Baclofen 10 MG TAB PO SCH ×2 (05:20→13:17)
[2019-06-02] MEDS: Aspirin 81 mg Enteric Coated Tablet PO SCH (09:39)
[2019-06-02] MEDS: Cyanocobalamin (Vitamin B-12) 1,000 MCG TAB PO SCH (09:40)
[2019-06-02] MEDS: Zonisamide 100 MG CAP PO SCH (09:40)
[2019-06-02] MEDS: Furosemide 40 MG TAB PO SCH (09:40)
[2019-06-02] MEDS: Ferrous Gluconate 324 MG TAB PO SCH (09:40)
[2019-06-02] MEDS: Multivitamin W/ Minerals 1 TAB PO SCH (09:40)
[2019-06-02] MEDS: Hydrochlorothiazide 25 MG TAB PO SCH (09:45)
[2019-06-02] MEDS: Minocycline HCl 50 MG CAP PO SCH (09:47)
--- NOTE | 2019-06-02 14:11 | PRG ---
DATE OF SERVICE: 06/02/2019 SUBJECTIVE: The patient is seen and examined at the bedside. She feels significantly better. She was placed on opioids by Dr. Greenwood. Her pain is decreased substantially. OBJECTIVE: VITAL SIGNS: Blood pressure is 126/79, pulse is 60, O2 saturation is 100% on room air, respiratory rate is 16, and temperature is 98.0. HEENT: The head is atraumatic and normocephalic. Eyes are PERRLA. Sclerae are nonicteric. Oral mucosa is moist. NECK: Supple. LUNGS: Clear. HEART: S1 and S2 are normal. ABDOMEN: Soft, nontender, and nondistended. EXTREMITIES: Left knee is status post surgery. A dressing is in place. Swelling approximately 1+ around the area. No bleeding. NEUROLOGIC: She is alert and oriented x4. There are no any motor deficits. LABORATORY DATA: None today. IMPRESSION: 1. Status post left knee arthroplasty. 2. Chronic respiratory failure with hypoxia, resolved. 3. Mixed connective tissue disease. 4. Thalassemia minor. 5. Hypertension. 6. Hyperlipidemia. PLAN: The patient is going to be transferred to the rehab. She is approved, and the transfer is per primary team. Job ID: [id number]
[2019-06-02 16:20] VITALS: BP 134/77; TEMP 98.4
== END 2019-06-02 17:52 | disposition home or self-care (01) | DRG 470 ==
LOC: SURG A 05-25 05:41 → SJJU 05-25 10:29
PROVIDERS: ADMIT Orthopaedic Surgery; ATTEND Orthopaedic Surgery
PROC: 0SRD0J9 Replacement of Left Knee Joint with Synthetic Substitute, Cemented, Open Approach (ICD-10-PCS; principal; 2019-05-25)
DX: M17.12 Unilateral primary osteoarthritis, left knee (principal); J96.11 Chronic respiratory failure with hypoxia; M35.1 Other overlap syndromes; M79.7 Fibromyalgia; I10 Essential (primary) hypertension; E78.5 Hyperlipidemia, unspecified; D56.3 Thalassemia minor; G89.4 Chronic pain syndrome; C50.919 Malignant neoplasm of unspecified site of unspecified female breast; D64.9 Anemia, unspecified
CPT/HCPCS: 36415; 80048; 83735; 85027; C1713; C1776; J0690; J1885; J2001; J2250; J2405; J2704; J2795; J3010; J3370; J3490; J7050; Q0162

== ENCOUNTER 2019-05-13 08:58 | Outpatient (CLI) | payer OTHER ==
[2019-05-13 11:11] LABS: #Basophils 0.1 thou/uL (0.0-0.2); #Eosinphils 0.2 thou/uL (0.0-0.7); #Lymphocytes 1.6 thou/uL (1.20-3.40); #Monocytes 0.7 thou/uL (0.11-0.59); #Neutrophils 6.3 thou/uL (1.40-6.50); %Basophils 0.7 % (0.0-1.0); %Eosinophils 2.5 % (0.0-10.0); %Lymphocytes 17.9 % (21.0-51.0); %Monocytes 7.5 % (0.0-10.0); %Neutrophils 71.4 % (42.0-75.0); Hemoglobin 11.7 g/dL (12.0-16.0); Mean Corpuscular HGB CONC 33.1 g/dL (32.0-36.0); Mean Corpuscular Hemoglobin 29.6 pg (27.0-31.0); Mean Corpuscular Volume 89.4 fL (78.0-98.0); Mean Platelet Volume 7.5 fL (7.4-10.4); Platelet Count 321 thou/uL (130-400); RBC Distribution Width 11.8 % (11.5-14.5); Red Blood Cell (RBC) Count 3.95 mill/uL (4.20-5.40); White Blood Cell (WBC) Count 8.9 thou/uL (4.8-10.8)
[2019-05-13 11:21] LABS: Bacteria/HPF None Seen HPF (None Seen); Bilirubin Negative (Negative); Blood, Urine Negative (Negative); Clarity CLEAR (Clear); Glucose, Urine (Dipstick) Negative (Negative); Hyaline Casts/LPF 0-3 HYALINE CAST LPF (0-3 Hyaline); Leukocyte Trace (Negative); Nitrite Negative (Negative); Pathc Cast-AUWi Flag 0.13 (0-2.49); Protein, Urine (Dipstick) Negative (Neg-Trace); RBC/HPF None Seen HPF (0-3); Specific Gravity, Urine 1.024 (1.002-1.036); Squamous Epithelial None Seen HPF (0-3); Urobilinogen 0.2 mg/dL (0.2-1.0); WBC/HPF None Seen HPF (0-3); pH, Urine 5.5 (5.0-9.0)
[2019-05-13 11:44] LABS: Anion Gap 16 mmol/L (10-20); BUN (Urea Nitrogen) 36 mg/dL (9.8-20.1); Calc. Creatinine Clearance 0 mL/min (70-130); Calcium 10.1 mg/dL (7.8-10.44); Carbon Dioxide 25 mmol/L (23-31); Chloride 103 mmol/L (98-107); Estimated GFR-MDRD 72; Glucose 91 mg/dL (80-115); Potassium 3.5 mmol/L (3.5-5.1); Sodium 140 mmol/L (136-145)
== END 2019-05-13 08:59 | disposition home or self-care (01) ==
LOC: LABBT 08:58
PROVIDERS: ATTEND Orthopaedic Surgery
DX: Z01.818 Encounter for other preprocedural examination (principal); M17.12 Unilateral primary osteoarthritis, left knee
CPT/HCPCS: 80048; 81001; 85025; 85610; 87081; 93005; 93010

== ENCOUNTER 2019-08-16 06:18 | Outpatient (CLI) | payer OTHER ==
[2019-08-16 11:56] LABS: #Basophils 0.1 thou/uL (0.0-0.2); #Eosinphils 0.3 thou/uL (0.0-0.7); #Lymphocytes 3.5 thou/uL (1.20-3.40); #Monocytes 0.8 thou/uL (0.11-0.59); #Neutrophils 7.2 thou/uL (1.40-6.50); %Basophils 0.5 % (0.0-1.0); %Eosinophils 2.8 % (0.0-10.0); %Lymphocytes 29.6 % (21.0-51.0); %Monocytes 6.3 % (0.0-10.0); %Neutrophils 60.8 % (42.0-75.0); Hemoglobin 12.4 g/dL (12.0-16.0); Mean Corpuscular Hemoglobin 28.4 pg (27.0-31.0); Mean Corpuscular Volume 85.9 fL (78.0-98.0); Mean Platelet Volume 7.5 fL (7.4-10.4); Platelet Count 352 thou/uL (130-400); RBC Distribution Width 13.2 % (11.5-14.5); Red Blood Cell (RBC) Count 4.37 mill/uL (4.20-5.40); White Blood Cell (WBC) Count 11.9 thou/uL (4.8-10.8)
[2019-08-16 12:07] LABS: INR-International Normal Ratio 0.9; Prothrombin Time 11.6 SEC (12.0-14.7)
[2019-08-16 12:22] LABS: Anion Gap 13 mmol/L (10-20); BUN (Urea Nitrogen) 37 mg/dL (9.8-20.1); Calc. Creatinine Clearance 0 mL/min (70-130); Calcium 10.4 mg/dL (7.8-10.44); Carbon Dioxide 30 mmol/L (23-31); Chloride 97 mmol/L (98-107); Estimated GFR-MDRD 74; Glucose 97 mg/dL (80-115); Potassium 3.5 mmol/L (3.5-5.1); Sodium 136 mmol/L (136-145)
== END 2019-08-16 06:19 | disposition home or self-care (01) ==
LOC: LABBT 06:18
PROVIDERS: ATTEND Orthopaedic Surgery
DX: Z01.812 Encounter for preprocedural laboratory examination (principal); M17.12 Unilateral primary osteoarthritis, left knee
CPT/HCPCS: 80048; 85025; 85610; 87081

== ENCOUNTER 2019-08-16 10:15 | Inpatient (IN) | payer OTHER ==
[2019-08-16 10:32] VITALS: BMI 33.3
[2019-08-24] MEDS ORDERED: Lidocaine 1% (PF) 30 ML VIAL ONE (06:04)
[2019-08-24] MEDS ORDERED: Midazolam HCl 2 mg/2 ml Vial ONE ×2 (06:04→07:05)
[2019-08-24] MEDS ORDERED: Fentanyl 100 MCG/2 ML VIAL ONE ×2 (06:04→09:43)
[2019-08-24] MEDS ORDERED: Sodium Chloride 0.9% 100 ML ONE (06:15)
[2019-08-24] MEDS ORDERED: Tranexamic Acid 1,000 MG/10 ML VIAL ONE (06:15)
[2019-08-24] MEDS ORDERED: Ondansetron PF 4 MG/2 ML Vial ONE ×3 (06:21→14:17)
[2019-08-24] MEDS ORDERED: Vancomycin HCl 1.5 GM in Sodium Chloride 0.9% 250 ML 300 ML IVPB SCH (06:30)
[2019-08-24] MEDS ORDERED: Ondansetron PF 4 MG/2 ML Vial IVP PRN ×3 (06:44→07:41)
[2019-08-24] MEDS ORDERED: Naloxone HCl 0.4 mg/ml Vial IV PRN (06:44)
[2019-08-24] MEDS ORDERED: diphenhydrAMINE 50 MG/ML VIAL IM PRN (06:44)
[2019-08-24] MEDS ORDERED: Zolpidem Tartrate 5 MG TAB PO PRN ×2 (06:44→06:52)
[2019-08-24] MEDS ORDERED: diphenhydrAMINE 50 MG/ML VIAL IVP PRN (06:44)
[2019-08-24] MEDS ORDERED: Ondansetron HCl/PF 4 MG/2 ML Vial IVP PRN (06:44)
[2019-08-24] MEDS ORDERED: Communication Order-Pharmacy FS SCH (06:45)
[2019-08-24] MEDS ORDERED: Acetaminophen 325 MG TAB PO PRN (06:52)
[2019-08-24] MEDS ORDERED: diphenhydrAMINE 25 MG CAP PO PRN (06:52)
[2019-08-24] MEDS ORDERED: traMADol HCl 50 MG TAB PO PRN (06:56)
[2019-08-24] MEDS ORDERED: oxyCODONE/Acetaminophen 5 mg/325 mg Tablet PO PRN (06:57)
[2019-08-24] MEDS ORDERED: Tranexamic Acid 1,000 MG in Sodium Chloride 0.9% 100 ML IVPB SCH (07:00)
[2019-08-24] MEDS ORDERED: Promethazine HCl 25 MG/ML VIAL IM PRN (07:41)
--- NOTE | 2019-08-24 11:14 | RAD ---
KUB: DATE: 08/24/19 HISTORY: Postop. FINDINGS: This shows placement of a total knee prosthesis which appears to be in good position. No signs of fra cture. IMPRESSION: Placement of a total knee prosthesis. POS: TPC
[2019-08-24] MEDS: Ferrous Gluconate 324 MG TAB PO SCH ×2 (12:19→21:16)
[2019-08-24] MEDS: Cyanocobalamin (Vitamin B-12) 1,000 MCG TAB PO SCH (12:19)
[2019-08-24] MEDS: Zonisamide 100 MG CAP PO SCH ×2 (12:19→21:55)
[2019-08-24] MEDS: Furosemide 40 MG TAB PO SCH (12:19)
[2019-08-24] MEDS: Senokot S 8.6-50 MG TAB PO SCH ×2 (12:19→21:16)
[2019-08-24] MEDS: Multivitamin W/ Minerals 1 TAB PO SCH (12:19)
[2019-08-24] MEDS: Baclofen 10 MG TAB PO SCH ×3 (12:19→21:16)
[2019-08-24] MEDS: Aspirin 81 mg Enteric Coated Tablet PO SCH ×2 (12:19→21:16)
[2019-08-24] MEDS: Sodium Chloride 0.9% 1,000 ML IV SCH ×3 (12:33→23:39)
[2019-08-24] MEDS: Ketorolac Tromethamine 30 MG/ML VIAL IVP SCH ×3 (12:34→23:39)
[2019-08-24] MEDS ORDERED: FLU VACC QS2019-20(6MOS UP)/PF 60 MCG/0.5 ML SYRINGE IM ONE (13:15)
--- NOTE | 2019-08-24 13:43 | OP ---
DATE OF PROCEDURE: 08/24/2019 PREOPERATIVE DIAGNOSIS: Failed right total knee arthroplasty. POSTOPERATIVE DIAGNOSIS: Failed right total knee arthroplasty. AUTO TECH: Memo Case PA-C ANESTHESIA: General via LMA augmented with the indwelling adductor canal block and a single-shot sciatic block. COMPONENTS USED: AMS-Qis size 3, total stabilized cemented and stemmed femoral component utilizing multiple augments distally and posteriorly primarily on the lateral aspect and a 12 mm diameter, 100 mm length fluted stem, a 19 mm size 2 total stabilizer plus tibial insert and a size 2 cemented universal tibial baseplate. INPUT: 1200 mL crystalloid. OUTPUT: 250 mL clear yellow urine. ESTIMATED BLOOD LOSS: Approximately 100 mL. TOURNIQUET TIME: 99 minutes at 300 mmHg. FINDINGS: Failure of prior cruciate sparing fixed bearing insert with [id number] contact of the posteromedial tibial tray subluxation and significant metallosis in the posterior compartment as well as diffusely throughout the synovium. DRAINS: None. SPECIMENS: None. COMPLICATIONS: None. COUNTS: Correct. INDICATION FOR SURGERY: Missy is a 64-year-old white female, who has had progressive right knee pain, which started with a fall approximately five years ago. She has carried a terminal diagnosis for many years and had been on hospice and therefore failed to address her right knee surgically there, but evidence of clinical improvement prompting the patient to proceed with right total knee arthroplasty revision. DESCRIPTION OF PROCEDURE: After informed consent was obtained in the preoperative holding area, the patient was taken to the operative suite, where the general anesthesia was induced and LMA was placed and secured. Once adequate anesthesia was obtained, a well-padded tourniquet was placed on the right proximal thigh. The right lower extremity was then prepped and draped in usual sterile fashion. Prior to exsanguination, a time-out was called. All members of surgical team agreed upon site, surgeon, and the patient. The patient also received preoperative antibiotics prior to this. The extremity was exsanguinated and the tourniquet was raised to 300 mmHg with the remainder of the case to include closure. The patient's prior incision was identified in the midline and demarcated with ink. We did not use the full incision as it was not necessary for our exposure. Longitudinal incision was made. Subcutaneous layer was sharply dissected. The capsule was encountered and the arthrotomy was performed sharply and median parapatellar arthrotomy was performed. We did not utilize the vastus split method. The medial sleeve was developed with the periosteal elevator and the lateral sleeve was developed up to the tibial tubercle. The significant metallosis was encountered during the arthrotomy. Full suprapatellar medial and lateral gutter synovectomy was then carried out with the Bovie electrocautery and blunt dissection. All of the suprapatellar pouch and the patella itself was dissected out carefully and we left the patella in place. It was seen to be well fixed. The femoral component was then very easily malleted out of place as it was already loose with metallosis, which was extravasated into the bone and caused significant macrophage reaction. Fair amounts of spongy bone were identified in the posterior and lateral femoral condyle. Once the femoral component was extracted, the polyethylene was then removed and attention was turned to the tibial baseplate removal. The tibial baseplate was a little more well fixed that a combination of reciprocating saw and straight osteotomes were used to make a bone cuts and removed the old cement mantle. Quarter-inch osteotome was used to remove the remainder of the tibial mantle. This was cleaned and then prepped for implantation. The tibial cut was addressed first. We added approximately 2 mm to freshen up the tibia. The baseplate was placed, malleted squarely in place, pinned and the canal was reamed down to the appropriate depth for the universal baseplate. Femoral preparation consisted of placing the tibial trial implants in up to about a 12 mm poly. Then, we placed our femoral cutting guide set rotation, pinned it in place, and I removed the appropriate amount of bone both anterior and posterior paying more attention to the posteromedial aspect of the femur. Once all bone cuts were freshened up, we then used a series of curettage and Bovie electrocautery to continue to remove soft, spongy, and impregnated bone that had significant metallosis in it. After a complete femoral preparation, we then prepared for cementing in the implant placement. We applied methacrylate cement to the tibia and malleted our tibial implant in place, placed our polyethylene spacer, and then applied the femoral component. The knee was then placed in full extension and ligament tests were also carried out. She was stable to varus and valgus stressing. The patella tracked in the midline as expected. The entire wound was copiously irrigated with normal saline to include 3 L of pulsatile lavage. Primary closure was began with arthrotomy being closed with interrupted [id number], #2 Vicryl stitches and this was oversewn with #2 Quill stitch in a running fashion. The subcutaneous layer was then closed with running 0 Quill stitch and a subcuticular stitch was placed in the subdermal area. The skin was reapproximated and the skin cement was then applied. Sterile dressing was applied. The tourniquet was dropped and the procedure was terminated without any complication. The patient was awakened in the operative suite, LMA was removed, taken to recovery room in stable condition. Job ID: [id number]
[2019-08-24] MEDS ORDERED: Ropivacaine 0.5% HCl/PF (150 MG/30 ML VIAL) ONE (13:49)
[2019-08-24] MEDS ORDERED: Ropivacaine 0.2% HCl/PF (40 MG/20 ML VIAL) ONE (13:49)
[2019-08-24] MEDS ORDERED: Dexamethasone 20 MG/5 ML VIAL ONE (14:17)
[2019-08-24] MEDS ORDERED: Lidocaine 1% PF 5 ML VIAL ONE (14:17)
[2019-08-24] MEDS ORDERED: PROPOFOL 200 MG/20 ML VIAL ONE (14:17)
[2019-08-24] MEDS: CEFAZOLIN 2 GM in Premix Bag 1 BAG IVPB SCH ×2 (14:43→21:17)
[2019-08-24] MEDS: Cyclobenzaprine 10 MG TAB PO PRN ×2 (14:58→21:59)
--- NOTE | 2019-08-24 19:22 | PDOC.HOSPP ---
- Subjective Encounter Date: 08/24/19 Encounter Time: 19:22 Subjective: pt up in bed no complains - Objective Vital Signs & Weight: Vital Signs (12 hours) Temp Pulse Resp BP Pulse Ox 08/24/19 10:45 97.4 F L 67 18 114/72 100 Weight Weight 194 lb I&O: 08/23/19 08/24/19 08/25/19 06:59 06:59 06:59 Intake Total 1100 Output Total 475 Balance 625 Result Diagrams: 08/26/19 04:56 Hospitalist ROS - Review of Systems Cardiovascular: denies: chest pain, palpitations, orthopnea, paroxysmal noc. dyspnea, edema, light headedness, other Gastrointestinal: denies: nausea, vomiting, abdominal pain, diarrhea, constipation, melena, hematochezia, other Genitourinary: denies: dysuria, frequency, incontinence, hematuria, retention, other - Medication Medications: Active Medications Generic Name Dose Route Start Last Admin Trade Name Freq PRN Reason Stop Dose Admin Aspirin 81 mg 08/24/19 09:00 08/24/19 12:19 Ecotrin PO Not Given BID KRISTINE Baclofen 10 mg 08/24/19 09:00 08/24/19 14:42 Lioresal PO 10 mg TID KRISTINE Administration Cyanocobalamin 1,000 mcg 08/24/19 09:00 08/24/19 12:19 Vitamin B-12 PO Not Given DAILY KRISTINE Cyclobenzaprine HCl 10 mg 08/24/19 06:56 08/24/19 14:58 Flexeril PO 10 mg TID PRN Administration Muscle Pain Ferrous Gluconate 324 mg 08/24/19 09:00 08/24/19 12:19 Fergon PO Not Given BID KRISTINE Furosemide 40 mg 08/24/19 09:00 08/24/19 12:19 Lasix PO Not Given QAM KRISTINE Cefazolin Sodium/Dextrose 2 gm 50 mls @ 100 mls/hr 08/24/19 14:00 08/24/19 14 :43 / Device IVPB 08/24/19 22:29 50 mls Q8HR KRISTINE Administration Sodium Chloride 1,000 mls @ 100 mls/hr 08/24/19 07:00 08/24/19 16:06 Normal Saline 0.9% IV Not Given .Q10H KRISTINE Iron/Minerals/Multivitamins 1 tab 08/24/19 09:00 08/24/19 12:19 Theragran M PO Not Given DAILY [facility] Ketorolac Tromethamine 15 mg 08/24/19 12:00 08/24/19 17:15 Toradol IVP 08/26/19 12:01 15 mg Q6HR KRISTINE Administration Senna/Docusate Sodium 2 tab 08/24/19 09:00 08/24/19 12:19 Senokot S PO Not Given BID [facility] Zonisamide 200 mg 08/24/19 09:00 08/24/19 12:19 Zonisamide PO Not Given BID [facility] - Exam Heart: negative: RRR, no murmur, no gallops, no rubs, normal peripheral pulses, irregular, diminshed peripheral pulses, murmur present, II/IV, III/IV Respiratory: negative: CTAB, no wheezes, no rales, no ronchi, normal chest expansion, no tachypnea, normal percussion, rales, rhonchi, tachypneic, wheezes Gastrointestinal: negative: soft, non-tender, non-distended, normal bowel sounds , no palpable masses, no hepatomegaly, no splenomegaly, no bruit, no guarding, no rigidity, tender to palpation, distended, diminished bowl sounds, voluntary guarding Hosp A/P (1) HTN (hypertension) Code(s): I10 - ESSENTIAL (PRIMARY) HYPERTENSION Status: Acute (2) HLD (hyperlipidemia) Code(s): E78.5 - HYPERLIPIDEMIA, UNSPECIFIED Status: Acute (3) Mixed connective tissue disease Code(s): M35.1 - OTHER OVERLAP SYNDROMES Status: Acute (4) Thalassemia minor Code(s): D56.3 - THALASSEMIA MINOR Status: Acute - Plan vitals stable, will monitor hh, pt is on oxygen at home will continue. Encourage to use IS
[2019-08-24] MEDS: Diazepam 5 MG TAB PO SCH (21:54)
[2019-08-24] MEDS: TRAMADOL ER 300 MG PO SCH (21:55)
[2019-08-25] MEDS: fentaNYL Citrate/PF 2,000 MCG in Sodium Chloride 0.9% 60 ML IV PRN ×2 (00:16→18:23)
[2019-08-25] MEDS: oxyCODONE/Acetaminophen 5 mg/325 mg Tablet PO PRN ×3 (02:32→18:39)
[2019-08-25] MEDS: diphenhydrAMINE 25 MG CAP PO PRN ×2 (02:36→22:14)
[2019-08-25] MEDS: Ketorolac Tromethamine 30 MG/ML VIAL IVP SCH ×3 (05:20→17:10)
[2019-08-25 06:31] LABS: Mean Corpuscular HGB CONC 32.9 g/dL (32.0-36.0); Mean Corpuscular Hemoglobin 29.2 pg (27.0-31.0); Mean Corpuscular Volume 88.8 fL (78.0-98.0); Mean Platelet Volume 7.1 fL (7.4-10.4); Platelet Count 233 thou/uL (130-400); RBC Distribution Width 13.2 % (11.5-14.5); Red Blood Cell (RBC) Count 3.07 mill/uL (4.20-5.40); White Blood Cell (WBC) Count 8.1 thou/uL (4.8-10.8)
[2019-08-25] MEDS: traMADol HCl 50 MG TAB PO PRN (08:19)
[2019-08-25] MEDS: Hydrochlorothiazide 25 MG TAB PO SCH (08:21)
[2019-08-25] MEDS: Valsartan 80 MG TAB PO SCH (08:21)
[2019-08-25] MEDS: Furosemide 40 MG TAB PO SCH (08:21)
[2019-08-25] MEDS: Aspirin 81 mg Enteric Coated Tablet PO SCH ×2 (08:23→20:22)
[2019-08-25] MEDS: Baclofen 10 MG TAB PO SCH ×3 (08:23→20:22)
[2019-08-25] MEDS: Cyanocobalamin (Vitamin B-12) 1,000 MCG TAB PO SCH (08:24)
[2019-08-25] MEDS: Multivitamin W/ Minerals 1 TAB PO SCH (08:24)
[2019-08-25] MEDS: Senokot S 8.6-50 MG TAB PO SCH ×2 (08:24→20:21)
[2019-08-25] MEDS: Ferrous Gluconate 324 MG TAB PO SCH ×2 (08:24→20:24)
[2019-08-25] MEDS: Zonisamide 100 MG CAP PO SCH ×2 (08:25→20:24)
[2019-08-25] MEDS: Cyclobenzaprine 10 MG TAB PO PRN ×2 (08:32→20:22)
[2019-08-25] MEDS ORDERED: CEVIMELINE HCL 30 MG PO SCH ×2 (09:00→13:45)
[2019-08-25] MEDS: Ropivacaine HCl/PF 250 ML in Premix Bag 1 BAG NERVE BLCK SCH (10:11)
--- NOTE | 2019-08-25 12:23 | PRG ---
DATE OF SERVICE: 08/25/2019 SUBJECTIVE: Missy is a 64-year-old white female. She is postop day #1 from a revision right total knee arthroplasty. She does complain of pain, but is tolerating it relatively well. OBJECTIVE: VITAL SIGNS: Temperature 98.5, pulse 63, respiratory rate 16 and nonlabored, and blood pressure 107/68. NEUROLOGIC: She is alert and oriented to person, place, time, situation, responsive, appropriate with examiner, grossly nonfocal. EXTREMITIES: Incision is clean without strike through. No erythema. She is neurovascularly intact. LABORATORY DATA: Hemoglobin and hematocrit 9.0 and 27.3. IMPRESSION: A 64-year-old female, postop day #1 right total knee arthroplasty revision. PLAN: Continue current care. Probable discharge/transfer to rehabilitation on Friday this week. Job ID: [id number]
[2019-08-25] MEDS: Sodium Chloride 0.9% 1,000 ML IV SCH (12:46)
[2019-08-25] MEDS ORDERED: RELIEF FACTOR PO SCH (15:00)
[2019-08-25] MEDS: Diazepam 5 MG TAB PO SCH (22:10)
[2019-08-25] MEDS: TRAMADOL ER 300 MG PO SCH (22:11)
[2019-08-26] MEDS: Ketorolac Tromethamine 30 MG/ML VIAL IVP SCH ×3 (00:19→11:51)
[2019-08-26] MEDS: Zolpidem Tartrate 5 MG TAB PO PRN ×2 (00:19→23:36)
[2019-08-26 05:39] LABS: Hemoglobin 8.4 g/dL (12.0-16.0); Mean Corpuscular HGB CONC 33.1 g/dL (32.0-36.0); Mean Corpuscular Hemoglobin 29.5 pg (27.0-31.0); Mean Corpuscular Volume 89.2 fL (78.0-98.0); Mean Platelet Volume 7.3 fL (7.4-10.4); Platelet Count 218 thou/uL (130-400); RBC Distribution Width 13.2 % (11.5-14.5); Red Blood Cell (RBC) Count 2.86 mill/uL (4.20-5.40); White Blood Cell (WBC) Count 10.8 thou/uL (4.8-10.8)
[2019-08-26] MEDS ORDERED: CEVIMELINE HCL 30 MG PO SCH (09:00)
[2019-08-26] MEDS: Sodium Chloride 0.9% 1,000 ML IV SCH ×2 (09:13→17:58)
[2019-08-26] MEDS: POTASSIUM GLUCONATE 99 MG PO SCH (09:15)
[2019-08-26] MEDS: Zonisamide 100 MG CAP PO SCH ×2 (09:17→21:12)
[2019-08-26] MEDS: CEVIMELINE HCL 30 MG PO SCH ×3 (09:17→21:14)
[2019-08-26] MEDS: Furosemide 40 MG TAB PO SCH (09:18)
[2019-08-26] MEDS: Baclofen 10 MG TAB PO SCH ×3 (09:18→21:13)
[2019-08-26] MEDS: Ferrous Gluconate 324 MG TAB PO SCH ×2 (09:18→21:13)
[2019-08-26] MEDS: Cyanocobalamin (Vitamin B-12) 1,000 MCG TAB PO SCH (09:19)
[2019-08-26] MEDS: Cyclobenzaprine 10 MG TAB PO SCH ×3 (09:19→21:13)
[2019-08-26] MEDS: Aspirin 81 mg Enteric Coated Tablet PO SCH ×2 (09:19→21:13)
[2019-08-26] MEDS: Multivitamin W/ Minerals 1 TAB PO SCH (09:19)
[2019-08-26] MEDS: Senokot S 8.6-50 MG TAB PO SCH ×2 (09:20→21:12)
[2019-08-26] MEDS: Valsartan 80 MG TAB PO SCH (09:22)
[2019-08-26] MEDS: Hydrochlorothiazide 25 MG TAB PO SCH (09:22)
[2019-08-26] MEDS: Ropivacaine HCl/PF 250 ML in Premix Bag 1 BAG NERVE BLCK SCH (11:55)
--- NOTE | 2019-08-26 14:32 | PRG ---
DATE OF SERVICE: 08/26/2019 SUBJECTIVE: Missy is a 64-year-old female, postop day 2 from a right total knee arthroplasty revision. She had some discomfort and pain last night, but this is to be expected with such a large surgery. Otherwise, she is in good spirits this morning. OBJECTIVE: VITAL SIGNS: Temperature 97.7, pulse 70, respiratory rate 16, O2 saturation is 100% with 3 L nasal cannula, and blood pressure 102/66. GENERAL: She is alert, oriented, responsive, and appropriate with examiner. Grossly nonfocal. EXTREMITIES: Incision is clean. No strikethrough. Neurovascularly intact in both lower extremities. No varus or valgus deformities noted. LABORATORY DATA: Hemoglobin and hematocrit are 8.4 and 25.5. IMPRESSION: 1. A 64-year-old female postop day 2, right total knee arthroplasty revision. 2. Anemia. PLAN: Continue current care. Probable transfer to inpatient rehabilitation on Friday or Friday. Job ID: [id number]
[2019-08-26] MEDS: traMADol HCl 50 MG TAB PO PRN (15:20)
[2019-08-26] MEDS ORDERED: Docusate 100 MG CAP PO SCH (21:00)
[2019-08-26] MEDS: Docusate 100 MG CAP PO SCH (21:12)
[2019-08-26] MEDS: Diazepam 5 MG TAB PO SCH (21:15)
[2019-08-26] MEDS: TRAMADOL ER 300 MG PO SCH (23:33)
[2019-08-26] MEDS: fentaNYL Citrate/PF 2,000 MCG in Sodium Chloride 0.9% 60 ML IV PRN (23:36)
[2019-08-27] MEDS: Sodium Chloride 0.9% 1,000 ML IV SCH ×3 (03:35→23:14)
--- NOTE | 2019-08-27 07:58 | PDOC.HOSPP ---
- Subjective Encounter Date: 08/25/19 Encounter Time: 11:30 Subjective: pt up in bed complain of pain to her right knee. - Objective Vital Signs & Weight: Vital Signs (12 hours) Temp Pulse Resp BP Pulse Ox 08/27/19 05:00 98.5 F 87 18 110/70 98 08/27/19 00:00 98.7 F 88 18 102/69 100 08/26/19 20:00 98.6 F 89 18 97/63 100 Weight Admit Weight 194 lb Weight 194 lb I&O: 08/26/19 08/27/19 08/28/19 06:59 06:59 06:59 Intake Total 1360 1680 Output Total 1650 2075 Balance -290 -395 Result Diagrams: 08/26/19 04:56 Hospitalist ROS - Review of Systems Cardiovascular: denies: chest pain, palpitations, orthopnea, paroxysmal noc. dyspnea, edema, light headedness, other Gastrointestinal: denies: nausea, vomiting, abdominal pain, diarrhea, constipation, melena, hematochezia, other Genitourinary: denies: dysuria, frequency, incontinence, hematuria, retention, other - Medication Medications: Active Medications Generic Name Dose Route Start Last Admin Trade Name Freq PRN Reason Stop Dose Admin Aspirin 81 mg 08/24/19 09:00 08/26/19 21:13 Ecotrin PO 81 mg BID KRISTINE Administration Baclofen 10 mg 08/24/19 09:00 08/26/19 21:13 Lioresal PO 10 mg TID KRISTINE Administration Cholecalciferol 10,000 units 08/25/19 09:00 08/26/19 09:22 Vitamin D3 PO 10,000 units DAILY KRISTINE Administration Cyanocobalamin 1,000 mcg 08/24/19 09:00 08/26/19 09:19 Vitamin B-12 PO 1,000 mcg DAILY KRISTINE Administration Cyclobenzaprine HCl 10 mg 08/26/19 09:00 08/26/19 21:13 Flexeril PO 10 mg TID KRISTINE Administration Diazepam 20 mg 08/24/19 21:00 08/26/19 21:15 Valium PO 20 mg HS KRISTINE Administration Diphenhydramine HCl 25 mg 08/24/19 06:44 08/25/19 22:14 Benadryl PO 25 mg Q3H PRN Administration Itching Docusate Sodium 200 mg 08/26/19 21:00 08/26/19 21:12 Colace PO 200 mg BID KRISTINE Administration Ferrous Gluconate 324 mg 08/24/19 09:00 08/26/19 21:13 Fergon PO 324 mg BID KRISTINE Administration Furosemide 40 mg 08/24/19 09:00 08/26/19 09:18 Lasix PO 40 mg QAM KRISTINE Administration Hydrochlorothiazide 12.5 mg 08/25/19 09:00 08/26/19 09:22 Hydrochlorothiazide PO 12.5 mg DAILY KRISTINE Administration Fentanyl Citrate 2,000 mcg/ 100 mls @ 0 mls/hr 08/24/19 06:44 08/26/19 23:36 Sodium Chloride IV 100 mls INF PRN Administration Pain As Directed Sodium Chloride 1,000 mls @ 100 mls/hr 08/24/19 07:00 08/27/19 03:35 Normal Saline 0.9% IV Not Given .Q10H KRISTINE Ropivacaine 250 ml/ Device 250 mls @ 10 mls/hr 08/24/19 07:41 08/26/19 11:55 NERVE BLCK 250 mls INF KRISTINE Administration As Directed Iron/Minerals/Multivitamins 1 tab 08/24/19 09:00 08/26/19 09:19 Theragran M PO 1 tab DAILY KRISTINE Administration Oxycodone/Acetaminophen 2 tab 08/24/19 06:57 08/25/19 18:39 Percocet 5/325 PO 2 tab Q4H PRN Administration Severe Pain (7-10) Carbamazepine Er 100 0 each 08/24/19 21:00 08/26/19 21:13 Mg Tab PO 1 each HS KRISTINE Administration Potassium Gluconate 0 each 08/26/19 08:00 08/26/19 09:15 99 Mg Otc Prep PO 1 each QAM-WM KRISTINE Administration Tramadol Er 300 Mg 1 each 08/24/19 21:00 08/26/19 23:33 PO 1 each HS KRISTINE Administration Cevimeline Hcl [ 0 each 08/26/19 09:00 08/26/19 21:14 Evoxac] 30 Mg Cap PO 1 each TID KRISTINE Administration Senna/Docusate Sodium 3 tab 08/26/19 21:00 08/26/19 21:12 Senokot S PO 3 tab HS KRISTINE Administration Tramadol HCl 100 mg 08/24/19 06:52 10/03/19 15:20 Ultram PO 100 mg Q6H PRN Administration Moderate to Severe Pain (6-10) Valsartan 320 mg 08/25/19 09:00 08/26/19 09:22 Diovan PO 320 mg DAILY KRISTINE Administration Zolpidem Tartrate 5 mg 08/24/19 07:41 08/26/19 23:36 Ambien PO 5 mg HSPRN PRN Administration Insomnia Zonisamide 200 mg 08/24/19 09:00 08/26/19 21:12 Zonisamide PO 200 mg BID KRISTINE Administration - Exam Heart: negative: RRR, no murmur, no gallops, no rubs, normal peripheral pulses, irregular, diminshed peripheral pulses, murmur present, II/IV, III/IV Respiratory: negative: CTAB, no wheezes, no rales, no ronchi, normal chest expansion, no tachypnea, normal percussion, rales, rhonchi, tachypneic, wheezes Gastrointestinal: negative: soft, non-tender, non-distended, normal bowel sounds , no palpable masses, no hepatomegaly, no splenomegaly, no bruit, no guarding, no rigidity, tender to palpation, distended, diminished bowl sounds, voluntary guarding Extremities: negative: no cyanosis, no clubbing, no edema, 1+ LE edema, 2+ LE edema, clubbing Hosp A/P (1) HTN (hypertension) Code(s): I10 - ESSENTIAL (PRIMARY) HYPERTENSION Status: Acute (2) HLD (hyperlipidemia) Code(s): E78.5 - HYPERLIPIDEMIA, UNSPECIFIED Status: Acute (3) Mixed connective tissue disease Code(s): M35.1 - OTHER OVERLAP SYNDROMES Status: Acute (4) Thalassemia minor Code(s): D56.3 - THALASSEMIA MINOR Status: Acute - Plan vitals stable, anemia noted will monitor. pain management per ortho.
[2019-08-27] MEDS: Hydrochlorothiazide 25 MG TAB PO SCH (09:36)
[2019-08-27] MEDS: Valsartan 80 MG TAB PO SCH (09:38)
[2019-08-27] MEDS: Aspirin 81 mg Enteric Coated Tablet PO SCH ×2 (09:40→21:47)
[2019-08-27] MEDS: Baclofen 10 MG TAB PO SCH ×3 (09:40→21:47)
[2019-08-27] MEDS: Cyanocobalamin (Vitamin B-12) 1,000 MCG TAB PO SCH (09:40)
[2019-08-27] MEDS: Docusate 100 MG CAP PO SCH ×2 (09:41→21:46)
--- NOTE | 2019-08-27 09:41 | PRG ---
DATE OF SERVICE: 08/27/2019 SUBJECTIVE: Missy is a 64-year-old female who is postop day #3 for a revision right total knee arthroplasty. Her progress with therapy has been expectedly a little bit slow, but she was able to ambulate 200 feet yesterday. Otherwise, plans are for inpatient rehabilitation, possibly transferring tomorrow. OBJECTIVE: VITAL SIGNS: Temperature 98.3, pulse 70, respiratory rate 12, O2 saturation 100% on room air, and blood pressure 98/65. GENERAL: She is alert, oriented, responsive, appropriate with examiner. NEUROLOGIC: Grossly nonfocal. SKIN: Incision is clean. No strike through. No erythema. No malrotation or no shortening. IMPRESSION: A 64-year-old female, postop day #3, right revision total knee arthroplasty. PLAN: Continue current care. Transfer to rehab tomorrow. Job ID: [id number]
[2019-08-27] MEDS: Senokot S 8.6-50 MG TAB PO SCH ×2 (09:42→21:46)
[2019-08-27] MEDS: Ferrous Gluconate 324 MG TAB PO SCH ×2 (09:43→21:47)
[2019-08-27] MEDS: Furosemide 40 MG TAB PO SCH (09:43)
[2019-08-27] MEDS: Multivitamin W/ Minerals 1 TAB PO SCH (09:43)
[2019-08-27] MEDS: Zonisamide 100 MG CAP PO SCH ×2 (09:45→21:46)
[2019-08-27] MEDS: POTASSIUM GLUCONATE 99 MG PO SCH (09:46)
[2019-08-27] MEDS: CEVIMELINE HCL 30 MG PO SCH ×3 (09:48→21:46)
[2019-08-27] MEDS: Cyclobenzaprine 10 MG TAB PO SCH ×3 (09:48→21:47)
[2019-08-27] MEDS ORDERED: HYDROcodone/Acetaminophen 5/325 mg Tablet PO PRN (16:10)
--- NOTE | 2019-08-27 18:14 | PDOC.HOSPP ---
- Subjective Encounter Date: 08/26/19 Encounter Time: 10:30 Subjective: pt up in therapy complains of her knee feeling tight. - Objective Vital Signs & Weight: Vital Signs (12 hours) Temp Pulse Resp BP Pulse Ox 08/27/19 15:43 98.7 F 82 16 99/63 98 08/27/19 11:45 98.6 F 70 16 114/71 97 08/27/19 08:00 98.3 F 70 12 98/65 100 08/27/19 07:58 100 Weight Admit Weight 194 lb Weight 194 lb I&O: 08/26/19 08/27/19 08/28/19 06:59 06:59 06:59 Intake Total 1360 1680 1860 Output Total 1650 2075 2100 Balance -290 -395 -240 Result Diagrams: 08/26/19 04:56 Hospitalist ROS - Review of Systems Cardiovascular: denies: chest pain, palpitations, orthopnea, paroxysmal noc. dyspnea, edema, light headedness, other Gastrointestinal: denies: nausea, vomiting, abdominal pain, diarrhea, constipation, melena, hematochezia, other Musculoskeletal: reports: other (knee pain) - Medication Medications: Active Medications Generic Name Dose Route Start Last Admin Trade Name Freq PRN Reason Stop Dose Admin Aspirin 81 mg 08/24/19 09:00 08/27/19 09:40 Ecotrin PO 81 mg BID KRISTINE Administration Baclofen 10 mg 08/24/19 09:00 08/27/19 14:34 Lioresal PO 10 mg TID KRISTINE Administration Cholecalciferol 10,000 units 08/25/19 09:00 08/27/19 09:39 Vitamin D3 PO 10,000 units DAILY KRISTINE Administration Cyanocobalamin 1,000 mcg 08/24/19 09:00 08/27/19 09:40 Vitamin B-12 PO 1,000 mcg DAILY KRISTINE Administration Cyclobenzaprine HCl 10 mg 08/26/19 09:00 08/27/19 14:34 Flexeril PO 10 mg TID KRISTINE Administration Diazepam 20 mg 08/24/19 21:00 08/26/19 21:15 Valium PO 20 mg HS KRISTINE Administration Diphenhydramine HCl 25 mg 08/24/19 06:44 08/25/19 22:14 Benadryl PO 25 mg Q3H PRN Administration Itching Docusate Sodium 200 mg 08/26/19 21:00 08/27/19 09:41 Colace PO 200 mg BID KRISTINE Administration Ferrous Gluconate 324 mg 08/24/19 09:00 08/27/19 09:43 Fergon PO 324 mg BID KRISTINE Administration Furosemide 40 mg 08/24/19 09:00 08/27/19 09:43 Lasix PO 40 mg QAM KRISTINE Administration Hydrochlorothiazide 12.5 mg 08/25/19 09:00 08/27/19 09:36 Hydrochlorothiazide PO Not Given DAILY KRISTINE Fentanyl Citrate 2,000 mcg/ 100 mls @ 0 mls/hr 08/24/19 06:44 08/26/19 23:36 Sodium Chloride IV 100 mls INF PRN Administration Pain As Directed Sodium Chloride 1,000 mls @ 100 mls/hr 08/24/19 07:00 08/27/19 13:23 Normal Saline 0.9% IV Not Given .Q10H KRISTINE Ropivacaine 250 ml/ Device 250 mls @ 10 mls/hr 08/24/19 07:41 08/26/19 11:55 NERVE BLCK 250 mls INF KRISTINE Administration As Directed Iron/Minerals/Multivitamins 1 tab 08/24/19 09:00 08/27/19 09:43 Theragran M PO 1 tab DAILY KRISTINE Administration Oxycodone/Acetaminophen 1 tab 08/24/19 06:57 08/27/19 12:19 Percocet 5/325 PO 1 tab Q4H PRN Administration Moderate Pain (4-6) Oxycodone/Acetaminophen 2 tab 08/24/19 06:57 08/25/19 18:39 Percocet 5/325 PO 2 tab Q4H PRN Administration Severe Pain (7-10) Carbamazepine Er 100 0 each 08/24/19 21:00 08/26/19 21:13 Mg Tab PO 1 each HS KRISTINE Administration Potassium Gluconate 0 each 08/26/19 08:00 08/27/19 09:46 99 Mg Otc Prep PO 1 each QAM-WM KRISTINE Administration Tramadol Er 300 Mg 1 each 08/24/19 21:00 08/26/19 23:33 PO 1 each HS KRISTINE Administration Cevimeline Hcl [ 0 each 08/26/19 09:00 08/27/19 14:35 Evoxac] 30 Mg Cap PO 1 each TID KRISTINE Administration Senna/Docusate Sodium 3 tab 08/26/19 21:00 08/26/19 21:12 Senokot S PO 3 tab HS KRISTINE Administration Senna/Docusate Sodium 2 tab 08/27/19 09:00 08/27/19 09:42 Senokot S PO 2 tab QAM KRISTINE Administration Tramadol HCl 100 mg 08/24/19 06:52 08/26/19 15:20 Ultram PO 100 mg Q6H PRN Administration Moderate to Severe Pain (6-10) Valsartan 320 mg 08/25/19 09:00 08/27/19 09:38 Diovan PO Not Given DAILY KRISTINE Zolpidem Tartrate 5 mg 08/24/19 07:41 08/26/19 23:36 Ambien PO 5 mg HSPRN PRN Administration Insomnia Zonisamide 200 mg 08/24/19 09:00 08/27/19 09:45 Zonisamide PO 200 mg BID KRISTINE Administration - Exam Heart: negative: RRR, no murmur, no gallops, no rubs, normal peripheral pulses, irregular, diminshed peripheral pulses, murmur present, II/IV, III/IV Respiratory: negative: CTAB, no wheezes, no rales, no ronchi, normal chest expansion, no tachypnea, normal percussion, rales, rhonchi, tachypneic, wheezes Gastrointestinal: negative: soft, non-tender, non-distended, normal bowel sounds , no palpable masses, no hepatomegaly, no splenomegaly, no bruit, no guarding, no rigidity, tender to palpation, distended, diminished bowl sounds, voluntary guarding Hosp A/P (1) HTN (hypertension) Code(s): I10 - ESSENTIAL (PRIMARY) HYPERTENSION Status: Acute (2) HLD (hyperlipidemia) Code(s): E78.5 - HYPERLIPIDEMIA, UNSPECIFIED Status: Acute (3) Mixed connective tissue disease Code(s): M35.1 - OTHER OVERLAP SYNDROMES Status: Acute (4) Thalassemia minor Code(s): D56.3 - THALASSEMIA MINOR Status: Acute - Plan vitals stable, will monitor hh, pt is on oxygen at home will continue. Encourage to use IS 10/3 pt has minimal drainage around her incision. Encouraged to get up more with PT. Pain management per ortho and anesthesia.
[2019-08-27] MEDS: fentaNYL Citrate/PF 2,000 MCG in Sodium Chloride 0.9% 60 ML IV PRN (18:43)
[2019-08-27] MEDS: TRAMADOL ER 300 MG PO SCH (21:46)
[2019-08-27] MEDS: Diazepam 5 MG TAB PO SCH (21:47)
[2019-08-28] MEDS: Zolpidem Tartrate 5 MG TAB PO PRN (00:04)
[2019-08-28] MEDS: HYDROcodone/Acetaminophen 5/325 mg Tablet PO PRN ×2 (07:17→12:46)
[2019-08-28] MEDS: POTASSIUM GLUCONATE 99 MG PO SCH (09:43)
[2019-08-28] MEDS: CEVIMELINE HCL 30 MG PO SCH (09:44)
[2019-08-28] MEDS: Docusate 100 MG CAP PO SCH (09:45)
[2019-08-28] MEDS: Furosemide 40 MG TAB PO SCH (09:46)
[2019-08-28] MEDS: Senokot S 8.6-50 MG TAB PO SCH (09:46)
[2019-08-28] MEDS: Multivitamin W/ Minerals 1 TAB PO SCH (09:46)
[2019-08-28] MEDS: Baclofen 10 MG TAB PO SCH (09:46)
[2019-08-28] MEDS: Aspirin 81 mg Enteric Coated Tablet PO SCH (09:46)
[2019-08-28] MEDS: Cyanocobalamin (Vitamin B-12) 1,000 MCG TAB PO SCH (09:46)
[2019-08-28] MEDS: Ferrous Gluconate 324 MG TAB PO SCH (09:47)
[2019-08-28] MEDS: Cyclobenzaprine 10 MG TAB PO SCH (09:47)
[2019-08-28] MEDS: Zonisamide 100 MG CAP PO SCH (09:48)
[2019-08-28] MEDS: Hydrochlorothiazide 25 MG TAB PO SCH (09:51)
[2019-08-28] MEDS: Valsartan 80 MG TAB PO SCH (09:51)
[2019-08-28] MEDS: Sodium Chloride 0.9% 1,000 ML IV SCH (11:09)
[2019-08-28 11:27] VITALS: TEMP 97.3
[2019-08-28 12:12] VITALS: BP 139/79
== END 2019-08-28 12:59 | DRG 467 ==
LOC: SURG A 08-24 05:42 → SURG B 08-24 10:49
PROVIDERS: ADMIT Orthopaedic Surgery; ATTEND Orthopaedic Surgery
PROC: 0SPC0JZ Removal of Synthetic Substitute from Right Knee Joint, Open Approach (ICD-10-PCS; principal; 2019-08-24)
PROC: 0SRC0J9 Replacement of Right Knee Joint with Synthetic Substitute, Cemented, Open Approach (ICD-10-PCS; 2019-08-24)
DX: T84.092A Other mechanical complication of internal right knee prosthesis, initial encounter (principal); M35.1 Other overlap syndromes; E78.5 Hyperlipidemia, unspecified; D56.3 Thalassemia minor; D64.9 Anemia, unspecified; Z96.653 Presence of artificial knee joint, bilateral; Z88.5 Allergy status to narcotic agent; Z88.8 Allergy status to other drugs, medicaments and biological substances; Z90.710 Acquired absence of both cervix and uterus; Z90.49 Acquired absence of other specified parts of digestive tract; Z90.13 Acquired absence of bilateral breasts and nipples; Y83.1 Surgical operation with implant of artificial internal device as the cause of abnormal reaction of the patient, or of later complication, without mention of misadventure at the time of the procedure
CPT/HCPCS: 36415; 85027; 90471; 90686; C1713; C1776; C1781; G0008; J0690; J1100; J1885; J2001; J2250; J2405; J2704; J2795; J3010; J3370; J3490; J7050; Q0163

== ENCOUNTER 2021-11-01 10:05 | Outpatient (CLI) | payer MEDICARE, OTHER | END 2021-11-01 10:06 | disposition home or self-care (01) | LOC: MRI 10:05 | PROVIDERS: ATTEND Anesthesiology | DX: M54.12 Radiculopathy, cervical region (principal) | CPT/HCPCS: 72141 ==

== ENCOUNTER 2022-08-01 09:10 | Outpatient (CLI) | payer MEDICARE, OTHER ==
[2022-08-01 10:39] LABS: #Eosinphils 0.1 10x3/uL (0.0-0.5); #Monocytes 0.4 10x3/uL (0.0-1.1); #Neutrophils 1.8 10x3/uL (1.5-8.4); %Basophils 0.7 % (0.0-2.0); %Eosinophils 3.3 % (0.0-6.0); %Lymphocytes 43.1 % (18.0-47.0); %Monocytes 10.5 % (0.0-10.0); %Neutrophils 42.2 % (40.0-75.0); Hemoglobin 11.5 g/dL (12.0-15.5); Mean Corpuscular HGB CONC 32.7 g/dL (32.0-36.0); Mean Corpuscular Hemoglobin 29.9 pg (27.0-33.0); Mean Corpuscular Volume 91.4 fl (81.6-98.3); Mean Platelet Volume 9.6 fl (7.4-10.4); Platelet Count 272 10x3/uL (150-450); RBC Distribution Width 12.2 % (11.5-14.5); Red Blood Cell (RBC) Count 3.85 10x6/uL (3.90-5.03); White Blood Cell (WBC) Count 4.2 10x3/uL (3.5-10.5)
[2022-08-01 10:49] LABS: Anion Gap 13 mmol/L (10-20); BUN (Urea Nitrogen) 29 mg/dL (9.8-20.1); Calc. Creatinine Clearance 0 mL/min (70-130); Calcium 9.4 mg/dL (7.8-10.44); Carbon Dioxide 22 mmol/L (23-31); Chloride 109 mmol/L (98-107); Estimated GFR 86; Glucose 97 mg/dL (80-115); Potassium 3.8 mmol/L (3.5-5.1); Sodium 140 mmol/L (136-145)
== END 2022-08-01 09:11 | disposition home or self-care (01) ==
LOC: LABBT 09:10
PROVIDERS: ATTEND Orthopaedic Surgery
DX: Z01.818 Encounter for other preprocedural examination (principal); Z20.822 Contact with and (suspected) exposure to COVID-19
CPT/HCPCS: 80048; 85025; 87811; 93005; 93010

== ENCOUNTER 2022-08-06 06:38 | Day surgery (SDC) | payer MEDICARE, OTHER ==
[2022-08-02 14:17] VITALS: BMI 35.3
[2022-08-06] MEDS ORDERED: Vancomycin (BATCH) 1.5 GRAM/300 ML BAG ONE (07:35)
[2022-08-06] MEDS ORDERED: Fentanyl 100 MCG/2 ML VIAL ONE (08:14)
[2022-08-06] MEDS ORDERED: Midazolam HCl 2 mg/2 ml Vial ONE ×2 (08:14→09:34)
[2022-08-06] MEDS ORDERED: fentaNYL Citrate/PF 100 MCG/2 ML SYRINGE ONE (09:09)
[2022-08-06] MEDS ORDERED: traMADol HCl 50 MG TAB PO PRN ×2 (09:15)
[2022-08-06] MEDS ORDERED: HYDROcodone/Acetaminophen 10/325 mg Tablet PO PRN ×2 (09:15)
[2022-08-06] MEDS ORDERED: Ropivacaine 0.2% 550 ML 550 ML NERVE BLCK SCH (09:15)
[2022-08-06] MEDS ORDERED: Ondansetron PF 4 MG/2 ML Vial IVP PRN (09:15)
[2022-08-06] MEDS ORDERED: Promethazine HCl 25 MG/ML VIAL IM PRN (09:15)
[2022-08-06] MEDS ORDERED: Zolpidem Tartrate 5 MG TAB PO PRN (09:15)
[2022-08-06] MEDS ORDERED: Sodium Chloride 0.9% 100 ML ONE (09:25)
[2022-08-06] MEDS ORDERED: CEFAZOLIN 2 GM VIAL ONE (09:25)
[2022-08-06] MEDS ORDERED: Phenylephrine 10 MG/ML VIAL ONE (09:35)
[2022-08-06] MEDS ORDERED: PROPOFOL 200 MG/20 ML VIAL ONE (09:35)
[2022-08-06] MEDS ORDERED: Rocuronium Bromide 10 MG/ML (10ML VIAL) ONE (09:35)
[2022-08-06] MEDS ORDERED: Ondansetron PF 4 MG/2 ML Vial ONE (09:35)
[2022-08-06] MEDS ORDERED: Glycopyrrolate 0.2 MG/ML 5 ML SYRINGE ONE (09:35)
[2022-08-06] MEDS ORDERED: Bupivacaine HCl 0.5%/Epinephrine 1:200,000/PF 30 ml Vial ONE (09:35)
[2022-08-06] MEDS ORDERED: Dexamethasone 20 MG/5 ML VIAL ONE (09:35)
[2022-08-06] MEDS ORDERED: SUGAMMADEX SODIUM 200 MG/2 ML VIAL ONE (10:21)
[2022-08-06] MEDS ORDERED: Morphine 2 MG/ML VIAL ONE (11:32)
[2022-08-06] MEDS ORDERED: Ketorolac Tromethamine 30 MG/ML VIAL IVP SCH (12:00)
[2022-08-06] MEDS ORDERED: HYDROcodone/Acetaminophen 5/325 mg Tablet ONE (12:28)
== END 2022-08-06 14:18 | disposition home or self-care (01) ==
LOC: SDC 06:38
PROVIDERS: ATTEND Orthopaedic Surgery
PROC: 0LM20ZZ Reattachment of Left Shoulder Tendon, Open Approach (ICD-10-PCS; principal; 2022-08-06)
PROC: 0RQH0ZZ Repair Left Acromioclavicular Joint, Open Approach (ICD-10-PCS; 2022-08-06)
PROC: 3E0T3BZ Introduction of Anesthetic Agent into Peripheral Nerves and Plexi, Percutaneous Approach (ICD-10-PCS; 2022-08-06)
DX: M75.122 Complete rotator cuff tear or rupture of left shoulder, not specified as traumatic (principal); S46.212A Strain of muscle, fascia and tendon of other parts of biceps, left arm, initial encounter; M06.9 Rheumatoid arthritis, unspecified; I10 Essential (primary) hypertension; D56.3 Thalassemia minor; E78.5 Hyperlipidemia, unspecified; I48.91 Unspecified atrial fibrillation; Z85.3 Personal history of malignant neoplasm of breast; Z79.890 Hormone replacement therapy; Z79.899 Other long term (current) drug therapy; Z88.8 Allergy status to other drugs, medicaments and biological substances
CPT/HCPCS: 23130; 23412; 64416; A4306; J2270; J3370; C1713; J0690; J1100; J2250; J2370; J2405; J2704; J2795; J3010; J3490

== ENCOUNTER → 2022-08-07 | Day surgery (SDC) | payer MEDICARE, OTHER ==
[~2022-08-07] MED LIST: Ropivacaine 0.5% HCl/PF (150 MG/30 ML VIAL) ONE
== END | disposition home or self-care (01) ==
LOC: SDC 10:51
PROVIDERS: ATTEND Anesthesiology
PROC: 3E0T3BZ Introduction of Anesthetic Agent into Peripheral Nerves and Plexi, Percutaneous Approach (ICD-10-PCS; principal; 2022-08-07)
DX: G89.18 Other acute postprocedural pain (principal); Z88.8 Allergy status to other drugs, medicaments and biological substances
CPT/HCPCS: J2795

== ENCOUNTER 2024-08-31 23:03 | Observation (INO) | payer MEDICARE, OTHER ==
[2024-08-31] MEDS ORDERED: Ondansetron ODT 4 MG TAB PO PRN (23:17)
[2024-08-31] MEDS ORDERED: traMADol HCl 50 MG TAB PO PRN (23:17)
[2024-08-31] MEDS ORDERED: Ondansetron PF 4 MG/2 ML Vial IVP PRN (23:17)
[2024-08-31] MEDS ORDERED: Acetaminophen 325 MG TAB PO PRN (23:17)
[2024-08-31 23:36] VITALS: BMI 38.2
[2024-09-01 01:59] LABS: Troponin I Less than 0.010 ng/mL (< 0.028)
[2024-09-01 04:02] LABS: #Basophils 0.04 10x3/uL (0.0-0.2); %Basophils 0.7 % (0.0-1.0); %Eosinophils 2.6 % (0.0-10.0); %Lymphocytes 38.9 % (21.0-51.0); %Monocytes 9.5 % (0.0-10.0); Hematocrit 34.8 % (36.0-47.0); Hemoglobin 11.8 g/dL (12.0-16.0); Mean Corpuscular HGB CONC 33.9 g/dL (32.0-36.0); Mean Corpuscular Hemoglobin 29.9 pg (27.0-31.0); Mean Corpuscular Volume 88.3 fL (78.0-98.0); Mean Platelet Volume 9.7 fL (7.4-10.4); Platelet Count 241 10x3/uL (130-400); RBC Distribution Width 12.6 % (11.5-14.5); Red Blood Cell (RBC) Count 3.94 mill/uL (4.20-5.40)
[2024-09-01 04:47] LABS: Troponin I Less than 0.010 ng/mL (< 0.028)
[2024-09-01 04:55] LABS: ALT (SGPT) 13 U/L (8-55); AST (SGOT) 15 U/L (5-34); Albumin 3.5 g/dL (3.4-4.8); Alkaline Phosphatase 79 U/L (40-110); Anion Gap 10 mmol/L (10-20); BUN (Urea Nitrogen) 30 mg/dL (9.8-20.1); Bilirubin, Total 0.2 mg/dL (0.2-1.2); Calc. Creatinine Clearance 91 mL/min (70-130); Calcium 9.6 mg/dL (7.8-10.44); Carbon Dioxide 27 mmol/L (23-31); Chloride 107 mmol/L (98-107); Estimated GFR 72; Globulin 2.6 g/dL (2.4-3.5); Glucose 99 mg/dL (80-115); Potassium 3.8 mmol/L (3.5-5.1); Protein, Total 6.1 g/dL (5.8-8.1); Sodium 140 mmol/L (136-145)
[2024-09-01] MEDS: Levothyroxine Sodium 100 MCG TAB PO SCH (05:56)
[2024-09-01 08:44] VITALS: BP 109/66; TEMP 97.8
[2024-09-01] MEDS ORDERED: Famotidine 20 MG TAB PO SCH ×2 (09:00)
[2024-09-01] MEDS ORDERED: Famotidine/PF 20 mg/2ml Vial SLOW IVP SCH (09:00)
[2024-09-01] MEDS ORDERED: Colchicine 0.6 MG TAB PO SCH (09:00)
[2024-09-01] MEDS ORDERED: Losartan 25 MG TAB PO SCH (09:00)
[2024-09-01] MEDS ORDERED: Cyclobenzaprine 10 MG TAB PO SCH (09:00)
[2024-09-01] MEDS ORDERED: Escitalopram Oxalate 10 mg Tablet PO SCH (09:00)
[2024-09-01] MEDS ORDERED: Amlodipine 5 MG TAB PO SCH (09:00)
[2024-09-01] MEDS ORDERED: Cholecalciferol 1,000 UNITS (25 MCG) TAB PO SCH (09:00)
[2024-09-01] MEDS ORDERED: Hydrochlorothiazide 25 MG TAB PO SCH (09:00)
[2024-09-01] MEDS ORDERED: Aspirin Chewable 81 MG TAB PO SCH (09:00)
[2024-09-01] MEDS ORDERED: Cyanocobalamin (Vitamin B-12) 1,000 MCG TAB PO SCH (09:00)
[2024-09-01] MEDS ORDERED: Enoxaparin 40 MG (0.4 mL) SYRINGE SC SCH (09:00)
[2024-09-01] MEDS ORDERED: BuPROPion XL 150 MG ER.TAB PO SCH (09:00)
[2024-09-01] MEDS ORDERED: Diazepam 5 MG TAB PO SCH (21:00)
== END 2024-09-01 11:02 | disposition home or self-care (01) ==
LOC: 2SW 23:03 → INTOOBSV 23:03
PROVIDERS: ADMIT Internal Medicine; ATTEND Family Medicine
DX: R07.89 Other chest pain (principal); I10 Essential (primary) hypertension; E03.9 Hypothyroidism, unspecified; F41.1 Generalized anxiety disorder; M35.1 Other overlap syndromes; F32.9 Major depressive disorder, single episode, unspecified; I48.0 Paroxysmal atrial fibrillation; Z95.818 Presence of other cardiac implants and grafts; Z79.899 Other long term (current) drug therapy; Z88.8 Allergy status to other drugs, medicaments and biological substances; Z88.6 Allergy status to analgesic agent; Z79.890 Hormone replacement therapy
CPT/HCPCS: 71045; 80053 ×2; 83690; 83735; 83880; 84484 ×3; 85025 ×2; 85610; 85730; 93005; 99285; G0378 ×2; 36415

== ENCOUNTER 2024-09-22 12:48 | Outpatient (CLI) | payer MEDICARE, OTHER ==
[2024-09-22 15:48] LABS: #Basophils 0.05 10x3/uL (0.0-0.2); %Basophils 0.7 % (0.0-1.0); %Eosinophils 1.2 % (0.0-10.0); %Lymphocytes 25.3 % (21.0-51.0); %Monocytes 8.4 % (0.0-10.0); %Neutrophils 64.1 % (42.0-75.0); Hematocrit 39.8 % (36.0-47.0); Mean Corpuscular HGB CONC 32.7 g/dL (32.0-36.0); Mean Corpuscular Hemoglobin 29.5 pg (27.0-31.0); Mean Corpuscular Volume 90.2 fL (78.0-98.0); Mean Platelet Volume 10.4 fL (7.4-10.4); Platelet Count 302 10x3/uL (130-400); Red Blood Cell (RBC) Count 4.41 mill/uL (4.20-5.40)
[2024-09-22 16:10] LABS: ALT (SGPT) 24 U/L (8-55); AST (SGOT) 18 U/L (5-34); Alkaline Phosphatase 98 U/L (40-110); Anion Gap 13 mmol/L (10-20); BUN (Urea Nitrogen) 26 mg/dL (9.8-20.1); Bilirubin, Total 0.2 mg/dL (0.2-1.2); Calc. Creatinine Clearance 0 mL/min (70-130); Calcium 9.6 mg/dL (7.8-10.44); Carbon Dioxide 23 mmol/L (23-31); Chloride 104 mmol/L (98-107); Estimated GFR 70; Globulin 3.5 g/dL (2.4-3.5); Glucose 88 mg/dL (80-115); Potassium 3.7 mmol/L (3.5-5.1); Protein, Total 7.5 g/dL (5.8-8.1); Sodium 136 mmol/L (136-145)
== END 2024-09-22 12:49 | disposition home or self-care (01) ==
LOC: LABBT 12:48
PROVIDERS: ATTEND Internal Medicine Cardiovascular Disease
DX: Z01.818 Encounter for other preprocedural examination (principal); I49.3 Ventricular premature depolarization
CPT/HCPCS: 80053; 85025; 93005; 93010

== ENCOUNTER 2024-09-28 06:05 | Day surgery (SDC) | payer MEDICARE, OTHER ==
[2024-09-22 13:16] VITALS: BMI 37.8
[2024-09-28] MEDS ORDERED: Adenosine 6 mg (2 mL) VIAL ONE (06:20)
[2024-09-28] MEDS ORDERED: Midazolam HCl 2 mg/2 ml Vial ONE (06:20)
[2024-09-28] MEDS ORDERED: Verapamil 5 MG/2 ML VIAL ONE (06:20)
[2024-09-28] MEDS ORDERED: Heparin 10,000 UNITS/ 10 ML VIAL ONE (06:20)
[2024-09-28] MEDS ORDERED: Nitroglycerin 50 MG/250 ML BOT 0 ML ONE (06:21)
[2024-09-28] MEDS ORDERED: fentaNYL 50 mcg/mL 1 mL Vial ONE (07:32)
[2024-09-28] MEDS ORDERED: Iopamidol 370 76% 100 ML VIAL ONE (10:13)
== END 2024-09-28 12:13 | disposition home or self-care (01) ==
LOC: CCL 06:05
PROVIDERS: ATTEND Internal Medicine Cardiovascular Disease
PROC: 4A023N7 Measurement of Cardiac Sampling and Pressure, Left Heart, Percutaneous Approach (ICD-10-PCS; principal; 2024-09-28)
DX: I49.3 Ventricular premature depolarization (principal); I10 Essential (primary) hypertension; I45.9 Conduction disorder, unspecified; I48.0 Paroxysmal atrial fibrillation; G45.9 Transient cerebral ischemic attack, unspecified; G40.909 Epilepsy, unspecified, not intractable, without status epilepticus; F32.9 Major depressive disorder, single episode, unspecified; F41.9 Anxiety disorder, unspecified; F43.10 Post-traumatic stress disorder, unspecified; D56.3 Thalassemia minor; M05.9 Rheumatoid arthritis with rheumatoid factor, unspecified; M79.7 Fibromyalgia; Z85.3 Personal history of malignant neoplasm of breast; Z98.41 Cataract extraction status, right eye; Z86.16 Personal history of COVID-19; Z87.59 Personal history of other complications of pregnancy, childbirth and the puerperium; Z96.653 Presence of artificial knee joint, bilateral; Z98.42 Cataract extraction status, left eye; Z90.49 Acquired absence of other specified parts of digestive tract; Z90.13 Acquired absence of bilateral breasts and nipples; Z90.710 Acquired absence of both cervix and uterus; Z90.89 Acquired absence of other organs; Z98.890 Other specified postprocedural states; Z88.8 Allergy status to other drugs, medicaments and biological substances; Z88.5 Allergy status to narcotic agent; Z79.890 Hormone replacement therapy; Z79.899 Other long term (current) drug therapy
CPT/HCPCS: 93458; C1769 ×2; C1887; J2250; J3010; 99152; J0153; J1644

== ENCOUNTER 2025-11-07 14:39 | Outpatient (CLI) | payer MEDICARE, OTHER | END 2025-11-07 14:40 | disposition home or self-care (01) | LOC: SCSBT 14:39 | PROVIDERS: ATTEND Family Medicine | DX: Z13.820 Encounter for screening for osteoporosis (principal); Z78.0 Asymptomatic menopausal state; M85.88 Other specified disorders of bone density and structure, other site | CPT/HCPCS: 77080 ==